=== PATIENT | female | born 1960 | race Caucasian/White ===

== ENCOUNTER 2020-06-29 16:17 | Outpatient (REF) | payer OTHER, SELFPAY ==
--- NOTE | ~2020-06-29 | MM_ITS ---
EXAMINATION: MM SCREENING DIGITAL BREAST TOMOSYNTHESIS, BILATERAL CLINICAL INFORMATION: Screening. Asymptomatic. The lifetime risk of breast cancer based on the Tyrer-Cuzick Model is 18%. COMPARISON: Mammography: 12/17/2018, 10/30/2017, 10/28/2016 TECHNIQUE: Digital breast tomosynthesis is performed in both the craniocaudal and mediolateral oblique views along with computer-aided detection (CAD). Synthesized 2D images are generated from the tomosynthesis. FINDINGS: There are scattered areas of fibroglandular density (ACR BI-RADS breast composition Category b). The breast parenchymal pattern is similar to prior studies. There is no interval mass or architectural abnormality. Again, there are some scattered benign punctate round calcifications. The right axillar is unremarkable. The bilateral skin contours are smooth. There are 2 adjacent nodes left axilla which are increased in size from prior studies. Patient data sheet notes recent COVID vaccine left side, 2nd dose today. The left axillary changes likely represent benign post vaccination reactive change. Patient will be recalled for additional imaging. MM/MM tomosynthesis screening BI IMPRESSION: 1. Left: There are nodes left axillary increased in size from prior studies, likely benign post vaccination reactive change. 2. Right: No mammographic evidence of malignancy. ASSESSMENT: BI-RADS 0: Incomplete - Need Additional Imaging Evaluation RECOMMENDATION: 1. Spot left MLO view and targeted left axillary ultrasound in 4-12 weeks. 2. Radiology department staff will contact the patient for additional imaging. This patient's information was entered into a reminder system with a target due date for their next mammogram.
== END 2020-06-29 16:18 | disposition home or self-care (01) ==
LOC: HO.MAMMO 16:17
PROVIDERS: PCP Internal Medicine; Visit Provider Internal Medicine
DX: Z12.31 Encounter for screening mammogram for malignant neoplasm of breast (principal)
CPT/HCPCS: 77063; 77067

== ENCOUNTER 2020-09-12 13:47 | Outpatient (REF) | payer OTHER, SELFPAY ==
--- NOTE | ~2020-09-12 | MM_ITS ---
EXAMINATION: MM DIAGNOSTIC DIGITAL BREAST TOMOSYNTHESIS, LEFT CLINICAL INFORMATION: Enlarged axillary lymph nodes on prior study. Vaccine Injection was done in the left arm. COMPARISON: Mammography: June 29, 2020 and studies dating back to May 19, 2013 TECHNIQUE: Digital breast tomosynthesis is performed. 2D images are generated from the tomosynthesis. The following views are obtained: Left mediolateral oblique study targeted to the axilla. FINDINGS: There are scattered areas of fibroglandular density (ACR BI-RADS breast composition Category b). Views of the axilla demonstrate the 2 lymph nodes to have decreased in size and have a similar appearance to studies dating back to May 19, 2013. Results are discussed with the patient at time of visit. MM/MM tomosynthesis added views L IMPRESSION: Left axillary lymph nodes have returned to usual appearance. ASSESSMENT: BI-RADS 1: Negative RECOMMENDATION: Routine annual mammography screening. This patient's information was entered into a reminder system with a target due date for their next mammogram.
== END 2020-09-12 13:48 | disposition home or self-care (01) ==
LOC: HO.MAMMO 13:47
PROVIDERS: PCP Internal Medicine; Visit Provider Internal Medicine
DX: N63.32 Unspecified lump in axillary tail of the left breast (principal)
CPT/HCPCS: 77061; 77065

== ENCOUNTER 2021-01-30 13:43 | Outpatient (REF) | payer OTHER, SELFPAY ==
--- NOTE | ~2021-01-30 | XR_ITS ---
EXAMINATION: XR CHEST CLINICAL INFORMATION: Covid infection COMPARISON: None TECHNIQUE: 2 views of the chest were obtained. FINDINGS: The cardiac and mediastinal contours are normal. The lungs are clear. There is no pleural effusion or pneumothorax. There is mild curvature of the thoracic spine to the right and degenerative change. XR/XR chest 2V IMPRESSION: No evidence for acute disease in the chest.
== END 2021-01-30 13:44 | disposition home or self-care (01) ==
LOC: HO.HMGCX 13:43
PROVIDERS: PCP Internal Medicine; Visit Provider Internal Medicine
DX: U07.1 COVID-19 (principal)
CPT/HCPCS: 71046

== ENCOUNTER 2021-11-16 17:00 | Outpatient (REF) | payer OTHER, SELFPAY ==
[2021-11-22 14:56] LABS: HPV mRNA E6/E7 rflx Not Detected (Not Detected)
== END 2021-11-16 17:01 | disposition home or self-care (01) ==
LOC: HO.LNP 17:00
PROVIDERS: Visit Provider Internal Medicine
DX: Z12.4 Encounter for screening for malignant neoplasm of cervix (principal); Z11.51 Encounter for screening for human papillomavirus (HPV)
CPT/HCPCS: 87624; 88142

== ENCOUNTER 2021-11-21 09:22 | Outpatient (REF) | payer OTHER, SELFPAY ==
[2021-11-21 11:13] LABS: MANUAL DIFF FLAG NO
[2021-11-21 11:27] LABS: Basophils Absolute Auto 0.1 X10*3/uL (0.0-0.2); Basophils Percent Auto 1.1 % (0-2); Eosinophils Absolute Auto 0.1 X10*3/uL (0.0-0.4); Eosinophils Percent Auto 1.9 % (0-4); Hematocrit 42.8 % (37.0-47.0); Imm Gran Abs Auto 0.02 X10*3/uL (0.00-0.03); Imm Gran Pct Auto 0.4 % (0.0-0.4); Lymphocytes Absolute Auto 1.9 X10*3/uL (1.2-4.9); Lymphocytes Percent Auto 34.6 % (20-40); Mean Corpuscular HGB Conc 32.7 g/dl (31.0-35.0); Mean Corpuscular Volume 91.8 fL (80.0-98.0); Mean Platelet Volume 10.3 fL (9.4-12.3); Monocytes Absolute Auto 0.5 X10*3/uL (0.1-1.2); Neutrophils Absolute Auto 2.8 x10*3/uL (2.0-8.3); Platelet Count 238 X10*3/uL (160-400); Red Blood Count 4.66 X10*6/uL (4.20-5.50); Red Cell Distribution Width 12.5 % (11.0-16.0); White Blood Count 5.4 X10*3/uL (4.8-10.8)
[2021-11-21 12:04] LABS: TSH reflex Free T4 0.79 uIU/mL (0.32-4.0)
[2021-11-21 12:22] LABS: Alanine Aminotransferase 38 U/L (0-31); Albumin Level 4.5 g/dL (3.5-5.0); Alkaline Phosphatase 67 U/L (39-117); Anion Gap 18 (12-20); Aspartate Amino Transferase 38 U/L (5-31); Bilirubin Total 0.4 mg/dL (0.0-1.0); Blood Urea Nitrogen 15 mg/dL (9-16); Calcium 9.5 mg/dL (8.4-10.2); Carbon Dioxide 20 mmol/L (22-29); Chloride 108 mmol/L (96-108); Cholesterol 220 mg/dL; Estimated Glomerular Filt Rate > 60; Glucose Fasting 106 mg/dL (60-99); HDL Cholesterol 62 mg/dL; LDL Cholesterol Calculated 141 mg/dl; Potassium 5.1 mmol/L (3.3-5.1); Sodium 141 mmol/L (135-145); Total Protein 8.1 g/dL (6.5-8.0); Triglycerides 86 mg/dL
== END 2021-11-21 09:23 | disposition home or self-care (01) ==
LOC: HO.HMGCLDS 09:22
PROVIDERS: PCP Internal Medicine; Visit Provider Internal Medicine
DX: Z00.01 Encounter for general adult medical examination with abnormal findings (principal); M67.90 Unspecified disorder of synovium and tendon, unspecified site; M25.569 Pain in unspecified knee
CPT/HCPCS: 36415; 80053; 80061; 82306; 84443; 85025

== ENCOUNTER 2021-12-03 09:08 | Outpatient (REF) | payer OTHER, SELFPAY ==
--- NOTE | ~2021-12-03 | MM_ITS ---
EXAMINATION: MM SCREENING DIGITAL BREAST TOMOSYNTHESIS, BILATERAL CLINICAL INFORMATION: Screening. Asymptomatic. The lifetime risk of breast cancer based on the Tyrer-Cuzick Model is 13%. COMPARISON: Mammography: 09/12/2020, 06/29/2020, 12/17/2018 TECHNIQUE: Digital breast tomosynthesis is performed in both the craniocaudal and mediolateral oblique views along with computer-aided detection (CAD). Synthesized 2D images are generated from the tomosynthesis. FINDINGS: There are scattered areas of fibroglandular density (ACR BI-RADS breast composition Category b). There are no significant masses, abnormal calcifications, or other abnormalities. There is fine fibronodular parenchymal pattern is similar to prior studies. No developing density or architectural abnormality. The axilla are and skin contours are unremarkable. MM/MM tomosynthesis screening BI IMPRESSION: No mammographic evidence of malignancy. ASSESSMENT: BI-RADS 1: Negative RECOMMENDATION: Routine annual mammography screening. This patient's information was entered into a reminder system with a target due date for their next mammogram.
== END 2021-12-03 09:09 | disposition home or self-care (01) ==
LOC: HO.MAMMO 09:08
PROVIDERS: Visit Provider Internal Medicine
DX: Z12.31 Encounter for screening mammogram for malignant neoplasm of breast (principal)
CPT/HCPCS: 77063; 77067

== ENCOUNTER 2022-10-23 09:23 | Outpatient (AMB) | payer OTHER, SELFPAY ==
--- NOTE | 2022-10-23 09:41 | A.OFFVIS_ITS ---
Intake Vital Signs 10/23/22 09:42 Height 5 ft 6 in Weight 185 lb BMI 29.9 BP 136/65 Blood Pressure Location Rt brachial Position Sitting Pulse 77 Intake Visit Reasons: Colonoscopy screening Intake Note: Patient new consult for 2nd pre colonoscopy screening. Patient denies any GI issues. [employer] Required: No Accompanied by: Self / Same As Patient Allergies Sulfa (Sulfonamide Antibiotics) Allergy (Unknown, Verified 10/23/22 09:40) RASH Medication List - Last Reconciled 10/23/22 by Fany Irizarry PA-C bisacodyl (Dulcolax (bisacodyl)) 20 mg (4 x 5 mg) PO ONCE 1 day polyethylene glycol 3350 (Miralax) 238 grams PO ONCE PRN 1 day HPI HPI Comments History of Present Illness Details A 62 y/o female referred for screening colonoscopy- No GI complaints- Trying to get more exercise, and lose some weight. She has no bowel issues. 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 She has not currently undergoing any psychotherapy She does have a good support group between her family and friends She has no nausea, vomiting, hematemesis, hematochezia fever chills PFSH Medical History (Updated 10/23/22 @ 11:44 by Fany Irizarry PA-C) Arthralgia of knee Dupuytren's contracture of left hand History of COVID-19 Immunization declined Obesity (BMI 30.0-34.9) Vertigo Surgical History Hx of colonoscopy Family History Father Alcoholism Colon polyp Depression Mother Depression History of breast cancer Diabetes mellitus Social History Housing: House Patient Tobacco Use Status: Former Tobacco user Years Smoked: 3 months e-Cigarette/Vaping Use: Currently Using service: No Current occupational status: retired Cognitive needs: No Hearing needs: No Vision needs: Yes Review of Systems Const All systems reviewed & are unremarkable except as noted in HPI and below Denies chills and Denies fever(s) Card Denies chest pain and Denies dyspnea Resp Denies dyspnea GI Denies abdominal pain, Denies hematochezia, Denies change in bowel habits, Denies heartburn, Denies nausea and Denies vomiting Psych Reports anxiety, Reports depression, Denies homicidal ideation and Denies suicidal ideation Physical Exam Vital Signs: Last Vital Signs Pulse 77 10/23/22 09:42 BP 136/65 10/23/22 09:42 BMI result Body Mass Index 29.9 Const General: cooperative, healthy appearing, comfortable and anxious Orientation/consciousness: patient oriented x3 Limitations: no limitations Eyes Other: Tearful Sclerae: sclerae normal Resp Effort & Inspection: normal respiratory effort and able to speak in complete sentences Auscultation: clear to auscultation bilaterally Cardio Rate: regular rate Rhythm: regular rhythm Heart sounds: S1 normal heart sound present and S2 normal heart sound present GI Palpation (GI): Soft to palpation and nontender Auscultation: normal bowel sounds Skin General skin exam: no rashes or lesions noted Neuro General: patient oriented x3 Extrem General: Yes full ROM Psych Appearance: grossly normal and well kempt Speech and movement: Clear speech present Affect: Sad affect present Attitude: cooperative Thought process: Normal thought process present Thought content: Normal thought content present Assessment & Plan Assessment & Plan (1) Encounter for screening colonoscopy: Code(s): Z12.11 - Encounter for screening for malignant neoplasm of colon Plan: Screening colonoscopy MiraLax Gatorade prep (2) Depression: Comment: Pleasant, 62-year-old female Had in-depth conversation in regard to depression/anxiety over difficulty dealing with long-term relationship-she is very tearful upset-difficult controlling her emotions She denies any suicidal or homicidal ideation. She does seem to have a good friend/family support Did discuss psychotherapy- she will consider this. She makes a clear she does not want to be taking any medications for depression. Reassurance offered, receptive Code(s): F32.A - Depression, unspecified Plan: Encouraged her to Call with any questions or concerns Plan Colonoscopy- MG prep Consider psychotherapy Orders: Orders Colonoscopy - GI Use Only Today Z12.11 - Encounter for screening for malignant neoplasm of colon Medications: New bisacodyl (Dulcolax (bisacodyl)) Take 4 tablets by mouth at 12:00pm the day before your procedure. 20 mg (4 x 5 mg) PO ONCE 1 day 4 tabs 0RF colonoscopy prep Z12.11 - Encounter for screening for malignant neoplasm of colon polyethylene glycol 3350 (Miralax) Take as directed by mouth the day before your procedure. 238 grams PO ONCE 1 day PRN 238 grams 0RF laxative effect Patient Instructions: Very pleasant tearful 62-year-old female referred for screening colonoscopy Discussed procedure, rare risks, prep-literature given Consider psychotherapy She has no GI complaints We encouraged to call questions or concerns There are no major barriers to understanding identify Appreciate the opportunity assist in the care the patient Coding Level of Care Code New Pt Level 4 (79296) Diagnoses Encounter for screening colonoscopy Z12.11 Depression F32.A Time Spent (min) 55
[2022-10-23 09:42] VITALS: BP 136/65; PULSE 77; BMI 29.9
== END 2022-10-23 10:45 | disposition home or self-care (01) ==
PROVIDERS: PCP Internal Medicine; Visit Provider Physician Assistant
DX: Z01.818 Encounter for other preprocedural examination (principal); Z12.11 Encounter for screening for malignant neoplasm of colon; F32.A Depression, unspecified
CPT/HCPCS: 99204

== ENCOUNTER → 2022-10-23 09:23 | Outpatient (BNVA) | payer OTHER, SELFPAY | PROVIDERS: PCP Internal Medicine; Visit Provider Physician Assistant ==

== ENCOUNTER 2022-11-22 07:57 | Outpatient (AMB) | payer OTHER, SELFPAY ==
--- NOTE | 2022-11-22 08:06 | A.OFFPC_ITS ---
Vital Signs 11/22/22 08:08 11/22/22 08:15 Height 5 ft 6 in 5 ft 6 in Weight 178 lb BMI 28.7 BP 138/80 Blood Pressure Location Lt brachial Position Sitting Pulse 72 Pulse Source Pulse Oximeter Pulse Oximetry (%) 98 Oxygen Delivery Method Room Air Intake Visit Reasons: Annual PE Intake Note: pt is here for annual exam Accompanied by: Self / Same As Patient Allergies Sulfa (Sulfonamide Antibiotics) Allergy (Unknown, Verified 11/22/22 08:13) RASH Medication List - Last Reconciled 11/22/22 by Marcy Sutton MD No Known Home Meds Tobacco use date assessed: 11/22/22 Dental Screening Dental Screen Date: 11/22/22 Did you have a dental visit in the last 12 months?: Yes Did you have a dental problem in the last 6 months where you did not have access to dental care?: No Was dental information given to patient?: Patient has dentist HPI Annual PE HPI Details 62-year-old lady here today for physical exam. Fasting labs last year showed fasting glucose in prediabetic range and elevated cholesterol levels , has been trying to adhere to healthy eating habits. Has already been seen by GI clinic and will be scheduled for screening colonoscopy. She has an appointment already scheduled for a screening mammogram later this month. Had cervical cancer screening done last year, with Pap smear showing normal findings. Has had 2 COVID vaccination, does not want to get booster, shingles vaccine or the flu vaccine, up-to-date with her Tdap. Has episodes of low mood, just getting over a bad break-up with her boyfriend 4 months ago. Has good support with family and friends, and has been exercising, volunteering, staying follow-up in the community which has been helping. Does not want to start any medications for depression nor does she need any therapy, per patient. [facility] Medical History Vitamin D deficiency Hyperlipidemia Impaired fasting glucose Obesity (BMI 30.0-34.9) Dupuytren's contracture of left hand Immunization declined Arthralgia of knee History of COVID-19 Vertigo Surgical History (Updated 11/22/22 @ 08:37 by Marcy Sutton MD) Hx laparoscopic cholecystectomy Hx of colonoscopy Family History Father Alcoholism Colon polyp Depression Mother Depression History of breast cancer Diabetes mellitus Social History (Updated 11/22/22 @ 08:15 by Marcy Sutton MD) Housing: House Patient Tobacco Use Status: Former Tobacco user Years Smoked: 3 months e-Cigarette/Vaping Use: Currently Using service: No Current occupational status: retired Cognitive needs: No Hearing needs: No Vision needs: Yes Female Reproductive History Menstrual Menopause type: natural Date of last pap smear: 11/20/21 Questionnaire PHQ-9 Over the last 2 weeks, how often have you been bothered by any of the following problems? 1. Little interest or pleasure in doing things: several days 2. Feeling down, depressed, or hopeless: several days 3. Trouble falling or staying asleep, or sleeping too much: several days 4. Feeling tired or having little energy: several days 5. Poor appetite or overeating: not at all 6. Feeling bad about yourself - or that you are a failure or have let yourself or your family down: not at all 7. Trouble concentrating on things, such as reading the newspaper or watching television: not at all 8. Moving or speaking so slowly that other people could have noticed. Or the opposite - being so fidgety or restless that you have been moving around a lot more than usual: not at all 9. Thoughts that you would be better off or of hurting yourself in some way: not at all Total score: 4 Depression Screening Interpretation: Positive (Just had a bad break-up with boyfriend 04/2022) Depression Screening Follow-up: Existing condition and Declines treatment Source: Developed by Drs. Cale Hernandez, Ronda Chadwick, Vishnu Leonard and colleagues, with an educational fritz from [employer]. Thrive Questionnaire Date Thrive assessed: 11/22/22 I am a: Patient What is your living situation today?: I have a steady place to live Within the past 12 months, did the food you bought not last and you didn't have the money to get more?: Never true Within the past 12 months, did you worry whether your food would run out before you got money to buy more?: Never true Do you have trouble paying for medicines?: No Do you have trouble getting transportation to medical appointments?: No Do you have trouble paying your heating and electricity bill?: No Do you have trouble taking care of your child, family member or friend?: No Do you have trouble with day-to-day activities such as bathing, preparing meals, shopping, managing finances, etc.?: No Are you currently unemployed and looking for a job?: No Are you interested in more education?: No Please select the resources that you would like help with: None AUDIT C Alcohol Use Questionnaire (AUDIT-C) 1. How often do you have a drink containing alcohol?: Monthly or less Total Score: 1 FEDERICO-7 AMB Questionnaire FEDERICO-7 Date FEDERICO - 7 assessed: 11/22/22 Feeling nervous, anxious, or on edge: 1 = Several days Not being able to stop or control worryin = Several days Worrying too much about different things: 1 = Several days Trouble relaxin = Not at all Being so restless that it is hard to sit still: 0 = Not at all Becoming easily annoyed or irritable: 0 = Not at all Feeling afraid as if something awful might happen: 0 = Not at all Total FEDERICO-7 score (0-4 normal; 5-9 mild; 10-14 moderate; 15-21 severe): 3 Source: Developed by Drs. Cale Hernandez, Ronda Chadwick, Vishnu Leonard and colleagues, with an educational fritz from [employer]. FEDERICO-7 Assessment Billing FEDERICO-7 Assessment Tool: FEDERICO-7 Assessment 32916 Review of Systems Const All systems reviewed & are unremarkable except as noted in HPI and below Denies chills and Denies fever(s) Eyes Details: Sees [facility] Denies change in vision and Reports requires corrective lenses ENT Reports no additional complaints Card Denies chest pain and Denies dyspnea Resp Denies dyspnea GI Denies abdominal pain, Denies hematochezia, Denies change in bowel habits, Denies heartburn, Denies nausea and Denies vomiting Reports no additional complaints Musc Reports no additional complaints Skin/Breast Details: Presence of keratosis, sees [facility] yearly Denies breast swelling, Denies breast skin changes, Denies breast pain, Denies breast mass, Denies change in breast shape and Denies rash Neuro Denies behavioral changes Psych Reports as per HPI, Denies behavioral changes, Denies change in appetite, Denies difficulty concentrating, Denies panic attacks, Denies homicidal ideation and Denies suicidal ideation Endo Reports no additional complaints Ayden/Lymph Reports no additional complaints Aller/Immun Reports no additional complaints Physical exam (Primary Care) Vital Signs: Last Vital Signs Pulse 72 11/22/22 08:15 BP 138/80 11/22/22 08:15 Pulse Ox 98 11/22/22 08:15 Oxygen Delivery Method Room Air 11/22/22 08:15 BMI result Body Mass Index 28.7 BMI Assessment/Plan discussion: High BMI High, discussed plan: lifestyle, weight reduction, dietary and physical activity Tobacco/Smoking Status: Tobacco use Status Tobacco use date assessed 11/22/22 11/22/22 08:18 Patient Tobacco Use Status Former Tobacco user 11/22/22 08:15 e-Cigarette/Vaping Use Currently Using 11/22/22 08:15 PHQ-9: PHQ-9 Score PHQ-9: Total score 4 11/22/22 08:52 Depression Screening Interpretation: Positive (Just had a bad break-up with boyfriend 04/2022) Depression Screening Follow-up: Existing condition and Declines treatment Thrive Assessment: Date of Thrive Assessment Date Thrive assessed 11/22/22 11/22/22 08:27 Const General: cooperative, comfortable and no acute distress Orientation/consciousness: patient oriented x3 Limitations: no limitations HENMT Ears: hearing grossly normal bilaterally, external ears normal, TM's normal bilaterally and EAC's normal General nose exam: Normal external nose present and No nasal discharge present Mouth: Normal oral and palatal mucosa present, oropharynx normal and moist mucous membranes Eyes General: appearance normal, both eyes and all related structures Conjunctivae: conjunctivae normal Pupils: Equal, round and reactive pupils present EOM: EOMs intact bilaterally Neck Neck: Yes full ROM, Yes no lymphadenopathy and Yes supple Chest Chest palpation & inspection: normal inspection of the chest Breast/axilla palpation: normal palpation of the breasts Resp Effort & Inspection: normal respiratory effort and able to speak in complete sentences Auscultation: clear to auscultation bilaterally Cardio Rate: regular rate Rhythm: regular rhythm Heart sounds: S1 normal heart sound present and S2 normal heart sound present GI Inspection: Yes normal to inspection Auscultation: normal bowel sounds General: Yes no CVA tenderness Back/Spine/Pelvis Back: no CVA tenderness Skin Other: Scattered hyper pigmented slightly raised lesions on upper back, abdomen and arms Neuro General: patient oriented x3, gait normal, tone normal, moves all extremities, Normal light touch and pain sensation and no focal motor deficits Cranial nerves: Yes Equal, round and reactive pupils present Cognition (Neuro): normal cognition Gait exam (Neuro): Normal gait present Motor exam (neuro): 5/5 motor strength present throughout Extrem General: Yes full ROM, Yes no joint enlargement, Yes no clubbing, cyanosis or edema and Yes normal gait Psych Appearance: grossly normal and well kempt Mental Status: mental status grossly normal Speech and movement: Normal speech and movement present Affect: normal affect Attitude: cooperative Thought process: Normal thought process present Assessment and Plan Assessment & Plan (1) Obesity (BMI 30.0-34.9): Code(s): E66.9 - Obesity, unspecified Plan: Continue with regular exercise. Recommended focusing on improving your health instead of dieting. : Eat Mediterranean diet, limit foods high in fat, sugar, and calories, eat slowly, pay attention to portion sizes, plan your meals ahead of time, start regular physical activity 150 minutes of moderate intensity exe rcise or 90 minutes/week of vigorous exercise and increase water intake. (2) Hyperlipidemia: Code(s): E78.5 - Hyperlipidemia, unspecified Plan: Fasting lipid panel ordered (3) Impaired fasting glucose: Code(s): R73.01 - Impaired fasting glucose Plan: Your fasting blood sugars was elevated above 100 mg/dL on last check. Impaired glucose metabolism O2 at risk for developing diabetes mellitus type 2, as well as heart attack and stroke later on. Lifestyle changes at just weight loss, healthy eating habits, and regular exercise are important, and can prevent the progression to diabetes (4) Immunization declined: Code(s): Z28.21 - Immunization not carried out because of patient refusal Plan: Declines getting COVID vaccination, flu or shingles vaccine (5) Annual visit for general adult medical examination with abnormal findings: Code(s): Z00.01 - Encounter for general adult medical examination with abnormal findings Plan: Will check appropriate labs. Continue with regular dental visit every 6 months and regular eye exams, at least every 2 years, goes to [facility].. Take adequate calcium in diet and vitamin-D 3 at 2000 IU per cap once a day, in addition to weight-bearing exercises to help maintain good muscle tone and weight control. Instructed to do self-breast exam, and continue to get yearly mammogram, has appointment already scheduled later this month.. Already has been seen by GI clinic and is awaiting schedule for her screening colonoscopy. (6) Vitamin D deficiency: Code(s): E55.9 - Vitamin D deficiency, unspecified Plan: Check vitamin-D level (7) Family history of thyroid disorder: Code(s): Z83.49 - Family history of other endocrine, nutritional and metabolic diseases Plan: Check TSH with free T4 Orders: Orders Aspartate Amino Transferase Today E55.9 - Vitamin D deficiency, unspecified, E66.9 - Obesity, unspecified, E78.5 - Hyperlipidemia, unspecified, R73.01 - Impaired fasting glucose, Z00.01 - Encounter for general adult medical examination with abnormal findings, Z78.0 - Asymptomatic menopausal state TSH reflex Free T4 Today Z83.49 - Family history of other endocrine, nutritional and metabolic diseases Lipid Panel Today E55.9 - Vitamin D deficiency, unspecified, E66.9 - Obesity, unspecified, E78.5 - Hyperlipidemia, unspecified, R73.01 - Impaired fasting glucose, Z00.01 - Encounter for general adult medical examination with abnormal findings, Z78.0 - Asymptomatic menopausal state Hemoglobin A1c Today E55.9 - Vitamin D deficiency, unspecified, E66.9 - Obesity, unspecified, E78.5 - Hyperlipidemia, unspecified, R73.01 - Impaired fasting glucose, Z00.01 - Encounter for general adult medical examination with abnormal findings, Z78.0 - Asymptomatic menopausal state Vitamin D 25-OH Total Today E55.9 - Vitamin D deficiency, unspecified, E66.9 - Obesity, unspecified, E78.5 - Hyperlipidemia, unspecified, R73.01 - Impaired fasting glucose, Z00.01 - Encounter for general adult medical examination with abnormal findings, Z78.0 - Asymptomatic menopausal state Glucose Fasting Today E55.9 - Vitamin D deficiency, unspecified, E66.9 - Obe sity, unspecified, E78.5 - Hyperlipidemia, unspecified, R73.01 - Impaired fasting glucose, Z00.01 - Encounter for general adult medical examination with abnormal findings, Z78.0 - Asymptomatic menopausal state Alanine Aminotransferase Today E55.9 - Vitamin D deficiency, unspecified, E66.9 - Obesity, unspecified, E78.5 - Hyperlipidemia, unspecified, R73.01 - Impaired fasting glucose, Z00.01 - Encounter for general adult medical examination with abnormal findings, Z78.0 - Asymptomatic menopausal state Coding Level of Care Code Est Pt Prev Care 40-64y(11289) Diagnoses Obesity (BMI 30.0-34.9) E66.9 Hyperlipidemia E78.5 Impaired fasting glucose R73.01 Immunization declined Z28.21 Annual visit for general adult medical examination with abnormal findings Z00.01 Vitamin D deficiency E55.9 Family history of thyroid disorder Z83.49 Additional Codes FEDERICO-7 Assessment Billing - FEDERICO-7 Assessment Tool: FEDERICO-7 Assessment 80000 ([id number])
[2022-11-22 08:15] VITALS: BP 138/80; PULSE 72; O2SAT 98; BMI 28.7
== END 2022-11-22 08:46 | disposition home or self-care (01) ==
PROVIDERS: Visit Provider Internal Medicine
DX: Z00.01 Encounter for general adult medical examination with abnormal findings (principal); E55.9 Vitamin D deficiency, unspecified; Z83.49 Family history of other endocrine, nutritional and metabolic diseases; E66.9 Obesity, unspecified; E78.5 Hyperlipidemia, unspecified; R73.01 Impaired fasting glucose; Z28.21 Immunization not carried out because of patient refusal; Z68.28 Body mass index [BMI] 28.0-28.9, adult
CPT/HCPCS: 99396

== ENCOUNTER 2022-11-22 08:47 | Outpatient (REF) | payer OTHER, SELFPAY ==
[2022-11-22 11:47] LABS: Estimated Average Glucose 105 mg/dL; Hemoglobin A1c % 5.3 % (<6.0)
[2022-11-22 12:09] LABS: Alanine Aminotransferase 32 U/L (0-31); Aspartate Amino Transferase 26 U/L (5-31); Cholesterol 215 mg/dL (<200); Glucose Fasting 116 mg/dL (60-99); HDL Cholesterol 64 mg/dL (>40); LDL Cholesterol Calculated 134 mg/dL (<100); TSH reflex Free T4 2.03 uIU/mL (0.32-4.0); Triglycerides 87 mg/dL (<150); Vitamin D 25-OH Total 46.7 ng/mL (>30)
== END 2022-11-22 08:48 | disposition home or self-care (01) ==
LOC: HO.HMGCLDS 08:47
PROVIDERS: PCP Internal Medicine; Visit Provider Internal Medicine
DX: Z00.01 Encounter for general adult medical examination with abnormal findings (principal); E66.9 Obesity, unspecified; R73.01 Impaired fasting glucose; E78.5 Hyperlipidemia, unspecified; E55.9 Vitamin D deficiency, unspecified; Z78.0 Asymptomatic menopausal state; Z83.49 Family history of other endocrine, nutritional and metabolic diseases
CPT/HCPCS: 36415; 80061; 82306; 82947; 83036; 84443; 84450; 84460

== ENCOUNTER 2022-12-09 08:51 | Outpatient (REF) | payer OTHER, SELFPAY ==
--- NOTE | ~2022-12-09 | MM_ITS ---
EXAMINATION: MM SCREENING DIGITAL BREAST TOMOSYNTHESIS, BILATERAL CLINICAL INFORMATION: Screening. Asymptomatic. COMPARISON: Mammography: 12/02/2021, 09/12/2020, 06/29/2020, 12/17/2018 TECHNIQUE: Digital breast tomosynthesis is performed in both the craniocaudal and mediolateral oblique views along with computer-aided detection (CAD). Synthesized 2D images are generated from the tomosynthesis. FINDINGS: There are scattered areas of fibroglandular density (ACR BI-RADS breast composition Category b). Again, there are some scattered benign punctate round calcifications, without aggressive change. There are no suspicious masses, suspicious grouped calcifications, or areas of architectural distortion in either breast. The parenchymal pattern is stable from prior exams. There is a dermal lesion in the anterolateral right breast. No axillary changes. MM/MM tomosynthesis screening BI IMPRESSION: No mammographic evidence of malignancy. Stable benign findings. ASSESSMENT: BI-RADS BI-RADS 1 - Negative RECOMMENDATION: Routine annual mammography screening. 1 year F/U This examination should not preclude the clinical evaluation of a suspicious palpable abnormality. This patient's information was entered into a reminder system with a target due date for their next mammogram.
== END 2022-12-09 08:52 | disposition home or self-care (01) ==
LOC: HO.MAMMO 08:51
PROVIDERS: PCP Internal Medicine; Visit Provider Internal Medicine
DX: Z12.31 Encounter for screening mammogram for malignant neoplasm of breast (principal)
CPT/HCPCS: 77063; 77067

== ENCOUNTER → 2022-12-09 09:00 | Outpatient (BNV) | payer OTHER, SELFPAY | PROVIDERS: PCP Internal Medicine; Visit Provider Radiology Diagnostic Radiology | DX: Z12.31 Encounter for screening mammogram for malignant neoplasm of breast (principal) | CPT/HCPCS: 77063; 77067 ==

== ENCOUNTER 2023-01-21 09:09 | Outpatient (AMB) | payer OTHER, SELFPAY ==
[2023-01-21 09:59] VITALS: BP 120/80; PULSE 100; TEMP 36.3; O2SAT 97; BMI 28.6
--- NOTE | 2023-01-21 09:59 | MHC.OFFWIV ---
Intake Vital Signs 01/21/23 09:59 Height 5 ft 6 in Weight 177 lb 6 oz BMI 28.6 BP 120/80 Blood Pressure Location Rt brachial Position Sitting Pulse 100 Pulse Source Pulse Oximeter Temp 97.3 F Temp Source Temporal Artery Scan Pulse Oximetry (%) 97 Oxygen Delivery Method Room Air Intake Visit Reasons: EP Wheezing/Sinus pressure Intake Note: pt is here for c/o wheezing and sinus pressure, chest congestion 2 weeks Patient Tobacco Use Status: Former Tobacco user Allergies Sulfa (Sulfonamide Antibiotics) Allergy (Unknown, Verified 01/21/23 10:35) RASH Medication List - Last Reconciled 01/21/23 by Zaki Loya MD No Known Home Meds Do you need a note to return to daycare/school/sports/work: Yes HPI EP Wheezing/Sinus pressure HPI Details Patient presents for a sick visit. Reporting symptoms of sinus congestion, sore throat and difficulty swallowing. Low-grade fever. No family member is sick. No recent travel. Patient reports symptoms of malaise and fatigue. [facility] Medical History Vitamin D deficiency Hyperlipidemia Impaired fasting glucose Obesity (BMI 30.0-34.9) Dupuytren's contracture of left hand Immunization declined Arthralgia of knee History of COVID-19 Vertigo Surgical History (Updated 11/22/22 @ 08:37 by Marcy Sutton MD) Hx laparoscopic cholecystectomy Hx of colonoscopy Family History Father Alcoholism Colon polyp Depression Mother Depression History of breast cancer Diabetes mellitus Social History (Updated 11/22/22 @ 08:15 by Marcy Sutton MD) Housing: House Patient Tobacco Use Status: Former Tobacco user Years Smoked: 3 months e-Cigarette/Vaping Use: Currently Using service: No Current occupational status: retired Cognitive needs: No Hearing needs: No Vision needs: Yes Physical Exam Vital Signs: Last Vital Signs Temp 97.3 F 01/21/23 09:59 Pulse 100 01/21/23 09:59 BP 120/80 01/21/23 09:59 Pulse Ox 97 01/21/23 09:59 Oxygen Delivery Method Room Air 01/21/23 09:59 BMI result Body Mass Index 28.6 Const General: cooperative and healthy appearing Nutritional Appearance: well nourished Orientation/consciousness: patient oriented x3 Limitations: no limitations HEENT Head: Yes normal to inspection Eyes General: appearance normal, both eyes and all related structures Neck Neck: Yes normal visual inspection Chest Chest palpation & inspection: normal palpation of entire chest wall Resp Effort & Inspection: normal respiratory effort Neuro General: patient oriented x3 Assessment & Plan Assessment & Plan (1) Upper respiratory tract infection: Code(s): J06.9 - Acute upper respiratory infection, unspecified Plan Antibiotics ordered. Increase fluid intake. Tylenol for aches and pains. If symptoms worsen, follow-up here for a recheck. Coding Level of Care Code Est Pt Level 3 (75388) Diagnoses Upper respiratory tract infection J06.9
== END 2023-01-21 10:54 | disposition home or self-care (01) ==
PROVIDERS: PCP Internal Medicine; Visit Provider Internal Medicine
DX: J06.9 Acute upper respiratory infection, unspecified (principal)
CPT/HCPCS: 99213

== ENCOUNTER 2023-05-14 06:31 | Day surgery (SDC) | payer OTHER, SELFPAY ==
--- NOTE | 2023-05-14 06:16 | MHC.SHP ---
Pre-Procedural Eval Section A - 24 Hr Update-Section A only Date of Service: 05/14/23 Section B - Complete if H&P > 30 days Chief Complaint: screening Relevant Family History (Specify if Yes): No Relevant Social History: None Present Medications: see Short Stay Collaborative assessment Medical History: Significant History (Vitamin D deficiency Hyperlipidemia Impaired fasting glucose Obesity (BMI 30.0-34.9) Dupuytren's contracture of left hand Immunization declined Arthralgia of knee History of COVID-19 Vertigo) History of Previous Operations: Relevant previous surgery/procedure and date(s) (Hx laparoscopic cholecystectomy Hx of colonoscopy) Allergies: Allergies Allergy/AdvReac Type Severity Reaction Status Date / Time Sulfa (Sulfonamide Allergy Unknown RASH Verified 01/21/23 10:35 Antibiotics) Review of Systems Sugical H&P ROS: Negative: Constitution, Cardiovascular, Respiratory, Neurological, Psychiatric, Hem-Onc, Allergic/Immunologic, Gastrointestinal, Genitourinary, Musculoskeletal, Integumentary, Endocrine and Eyes/Ears/Nose/Throat Exam Surgical H&P Exam: Normal: HEENT, Normal: Heart, Normal: Lungs, Normal: Extremities, Normal: Abdomen, Normal: Skin and Normal: Neurological Plan Diagnosis/Plan: Unchanged I have reviewed the history and physical and performed a pertinent physical examination on my patient. No changes have occurred unless specified. Time Spent With Patient Time: Total time managing care of this patient today ____ minutes.
[2023-05-14 06:40] VITALS: BMI 29.9
[2023-05-14 06:53] VITALS: BP 144/76; PULSE 80; RESP 18; TEMP 36.6; O2SAT 99
[2023-05-14] MEDS: Lactated Ringers 1,000 ML 50 ML IVCONT (07:01)
--- NOTE | 2023-05-14 07:52 | HO.ANESPROP2 ---
HPI - Anesthesia Eval Consult details Narrative: colonoscopy PMFSH Active Problems Active Problems: All Active Problems (Updated 11/22/22 @ 08:10 by Marcy Sutton MD) Vitamin D deficiency (Acute) Hyperlipidemia (Acute) Impaired fasting glucose (Acute) Depression (Acute) Obesity (BMI 30.0-34.9) (Acute) Immunization declined (Acute) Arthralgia of knee (Acute) Past Medical History Medical History Vitamin D deficiency Hyperlipidemia Impaired fasting glucose Obesity (BMI 30.0-34.9) Dupuytren's contracture of left hand Immunization declined Arthralgia of knee History of COVID-19 Vertigo Family History Family History Father Alcoholism Colon polyp Depression Mother Depression History of breast cancer Diabetes mellitus Family history of problems with anesthesia: No Surgical History Surgical History Hx laparoscopic cholecystectomy Hx of colonoscopy History of Problems with Anesthesia: No Social History Social History Housing: House Patient Tobacco Use Status: Former Tobacco user Years Smoked: 3 months e-Cigarette/Vaping Use: Currently Using Substance Use Frequency: Daily Are you DNR?: No Advance Directives: No Advance Directives Information Provided: Yes Nutrition Risks: No Nutritional Risk service: No Current occupational status: retired Cognitive needs: No Hearing needs: No Vision needs: Yes Meds Allergies Allergy/AdvReac Type Severity Reaction Status Date / Time Sulfa (Sulfonamide Allergy Unknown RASH Verified 05/14/23 07:01 Antibiotics) Active Medications: Current Medications Lactated Ringer's (Lr) 1,000 mls @ 50 mls/hr IVCONT .Q20H NEELA Last Admin: 05/14/23 07:01 Dose: 50 mls/hr Home Medications Medication Instructions Recorded Confirmed Last Taken Type No Known Home Meds 05/14/23 05/14/23 Unknown History Exam Height,Weight and Vital Signs: Height 5 ft 6 in Weight 83.915 kg Last Vital Signs Temp 97.9 F 05/14/23 06:53 Pulse 80 05/14/23 06:53 Resp 18 05/14/23 06:53 BP 144/76 H 05/14/23 06:53 Pulse Ox 99 05/14/23 06:53 O2 Del Method Room Air 05/14/23 06:53 Airway Mallampati Class: II TM Dist: >3cm Neck ROM: Full Heart: rrr Lungs: cta Assessment and Plan Assessment Anesthesia Assessment: Anesthesia Plan Discussed and Chart Reviewed Final Anesthetic Review Family History of Problems with Anesthesia: No History of Problems with Anesthesia: No NPO: Yes ASA Class: I Final Preanesthetic Review: No Changes in Pt Med Stat, Meds/Allgs Chart Reviewed, Consent Obtained/Reviewed and Anes Risks/Benef Reviewed Patient Risk: Low Procedure Risk: Low Anesthetic Plan Anesthetic Plan: MAC: Disposition: Standard PACU
--- NOTE | 2023-05-14 08:32 | P.OP_ITS ---
Operative Note Operative Note Date of Service: 05/14/23 Narrative: Operative Information Procedure Description: Colonoscopy Indication: screening Anesthesia: MAC COLONOSCOPY Instrument: Olympus variable stiffness pediatric scope 190L Colonoscopy Monitoring: Vital signs and clinical assessment, continuous EKG monitoring, Pulse oximetry, Carbon Dioxide monitoring and blood pressure monitoring were done throughout the procedure. Colon withdrawal time was 8 minutes. Procedure: The patient was placed in the left lateral decubitis position and pre-procedure medications were administered. After a digital rectal examination of the ano-rectum, the video colonoscope was inserted into the rectum and advanced through the colon to the cecum/TI. The colonoscope was slowly withdrawn in a retrograde panoramic fashion and the colon mucosa was carefully examined including a retroflexed view of the rectum. Findings and interventions are described below. Procedure Difficulty: easy Findings: Terminal Ileum-normal Cecum:normal Right sided retroflexion- normal Ascending Colon: normal Transverse Colon -normal Descending Colon: diverticulosis, moderate Sigmoid Colon: sever diverticulosis with mucosal narrowing and angulation Rectum: Retroflexion with small internal hemorrhoids, grade I Anorectum - normal Colon preparation: [place] Bowel Preparation Scale Right colon; 2 Transverse colon: 3 Left colon; 2 (0 = Unprepared colon segment with mucosa not seen due to solid stool that cannot be cleared. 1 = Portion of mucosa of the colon segment seen, but other areas of the colon segment not well seen due to staining, residual stool and/or opaque liquid. 2 = Minor amount of residual staining, small fragments of stool and/or opaque liquid, but mucosa of colon segment seen well. 3 = Entire mucosa of colon segment seen well with no residual staining, small fragments of stool or opaque liquid) Impression and Post Procedure Diagnosis: internal hemorrhoids diverticular disease Plan: High fiber diet leaflet Avoid straining at stool, epsom salts and sitz bath, anusol supps or cream Repeat Colonoscopy in 10 years or earlier if clinically indicated Above findings were reviewed with the patient and relevant handouts were provided if indicated.
[2023-05-14 08:36] VITALS: BP 104/55; PULSE 73; RESP 16; TEMP 36.1; O2SAT 98
[2023-05-14 08:50] VITALS: BP 136/67; PULSE 61; RESP 16; O2SAT 98
[2023-05-14 09:05] VITALS: BP 135/61; PULSE 61; RESP 16; O2SAT 98
[2023-05-14 09:20] VITALS: BP 135/61; PULSE 73; RESP 16; TEMP 36.3; O2SAT 100
== END 2023-05-14 09:45 | disposition home or self-care (01) ==
PROVIDERS: PCP Internal Medicine; Visit Provider Internal Medicine Gastroenterology
PROC: 0DJD8ZZ Inspection of Lower Intestinal Tract, Via Natural or Artificial Opening Endoscopic (ICD-10-PCS; CPT 45378; principal; 2023-05-14 08:30)
DX: Z12.11 Encounter for screening for malignant neoplasm of colon (principal); K57.30 Diverticulosis of large intestine without perforation or abscess without bleeding; K64.0 First degree hemorrhoids; E55.9 Vitamin D deficiency, unspecified; E78.5 Hyperlipidemia, unspecified; R73.01 Impaired fasting glucose; R42 Dizziness and giddiness; F32.A Depression, unspecified; E66.9 Obesity, unspecified; Z68.29 Body mass index [BMI] 29.0-29.9, adult; Z88.2 Allergy status to sulfonamides; Z90.49 Acquired absence of other specified parts of digestive tract; Z86.16 Personal history of COVID-19; Z87.891 Personal history of nicotine dependence
CPT/HCPCS: 45378; J2704

== ENCOUNTER → 2023-05-14 06:31 | Outpatient (BNV) | payer OTHER, SELFPAY | PROVIDERS: PCP Internal Medicine; Visit Provider Internal Medicine Gastroenterology | DX: Z12.11 Encounter for screening for malignant neoplasm of colon (principal); K57.90 Diverticulosis of intestine, part unspecified, without perforation or abscess without bleeding; K64.8 Other hemorrhoids | CPT/HCPCS: 45378 ==

== ENCOUNTER 2023-05-26 13:43 | Outpatient (REF) | payer OTHER, SELFPAY ==
[2023-05-26 16:42] LABS: Alanine Aminotransferase 25 U/L (0-31); Albumin Level 4.5 g/dL (3.5-5.0); Alkaline Phosphatase 94 U/L (39-117); Aspartate Amino Transferase 19 U/L (5-31); Bilirubin Direct 0.1 mg/dL (0.0-0.5); Bilirubin Total 0.3 mg/dL (0.0-1.0); Total Protein 7.6 g/dL (6.5-8.0)
== END 2023-05-26 13:44 | disposition home or self-care (01) ==
LOC: HO.HMGCLDS 13:43
PROVIDERS: PCP Internal Medicine; Visit Provider Podiatrist
DX: B35.1 Tinea unguium (principal)
CPT/HCPCS: 36415; 80076

== ENCOUNTER 2023-05-28 09:02 | Outpatient (AMB) | payer OTHER, SELFPAY ==
[2023-05-28 09:11] VITALS: BP 132/72; PULSE 72; BMI 29.9
--- NOTE | 2023-05-28 09:11 | A.OFFVIS_ITS ---
Intake Vital Signs 05/28/23 09:11 Height 5 ft 6 in Weight 185 lb BMI 29.9 BP 132/72 Blood Pressure Location Lt brachial Position Sitting Pulse 72 Intake Visit Reasons: s/p colon Intake Note: Patient follw up for Colonoscopy results. Patient denies any GI issues. Admin Assistant Required: No Accompanied by: Self / Same As Patient Allergies Sulfa (Sulfonamide Antibiotics) Allergy (Unknown, Verified 05/28/23 09:11) RASH HPI HPI Comments History of Present Illness Details A 63 y/o female f/u after E PFSH Medical History Vitamin D deficiency Hyperlipidemia Impaired fasting glucose Obesity (BMI 30.0-34.9) Dupuytren's contracture of left hand Immunization declined Arthralgia of knee History of COVID-19 Vertigo Surgical History Hx laparoscopic cholecystectomy Hx of colonoscopy Family History Father Alcoholism Colon polyp Depression Mother Depression History of breast cancer Diabetes mellitus Social History Housing: House Patient Tobacco Use Status: Former Tobacco user Years Smoked: 3 months e-Cigarette/Vaping Use: Currently Using service: No Current occupational status: retired Cognitive needs: No Hearing needs: No Vision needs: Yes Physical Exam Vital Signs: Last Vital Signs Pulse 72 05/28/23 09:11 BP 132/72 05/28/23 09:11 BMI result Body Mass Index 29.9 Results Reviewed Results Reviewed: ndings: Terminal Ileum-normal Cecum:normal Right sided retroflexion- normal Ascending Colon: normal Transverse Colon -normal Descending Colon: diverticulosis, moderate Sigmoid Colon: sever diverticulosis with mucosal narrowing and angulation Rectum: Retroflexion with small internal hemorrhoids, grade I Anorectum - normal Colon preparation: [place] Bowel Preparation Scale Right colon; 2 Transverse colon: 3 Left colon; 2 (0 = Unprepared colon segment with mucosa not seen due to solid stool that cannot be cleared. 1 = Portion of mucosa of the colon segment seen, but other areas of the colon segment not well seen due to staining, residual stool and/or opaque liquid. 2 = Minor amount of residual staining, small fragments of stool and/or opaque liquid, but mucosa of colon segment seen well. 3 = Entire mucosa of colon segment seen well with no residual staining, small fragments of stool or opaque liquid) Impression and Post Procedure Diagnosis: internal hemorrhoids diverticular disease Plan: High fiber diet leaflet Avoid straining at stool, epsom salts and sitz bath, anusol supps or cream Repeat Colonoscopy in 10 years or earlier if clinically indicated Above findings were reviewed with the patient and relevant handouts were provided if indicated. Assessment & Plan Assessment & Plan (1) Diverticulosis of colon: Code(s): K57.30 - Diverticulosis of large intestine without perforation or abscess without bleeding Plan: ER protocol (2) Hemorrhoids: Code(s): K64.9 - Unspecified hemorrhoids Plan: avoid strain HFD Patient Instructions: Diverticulosis/itis- ER protocol HFD Avoid straining Call with concerns Foods to avoid ie:nuts, seeds, corn- etc- Coding Level of Care Code Est Pt Level 3 (15077) Diagnoses Diverticulosis of colon K57.30 Hemorrhoids K64.9 Time Spent (min) 25
== END 2023-05-28 09:55 | disposition home or self-care (01) ==
PROVIDERS: PCP Internal Medicine; Visit Provider Physician Assistant
DX: K57.30 Diverticulosis of large intestine without perforation or abscess without bleeding (principal); K64.9 Unspecified hemorrhoids
CPT/HCPCS: 99213

== ENCOUNTER → 2023-05-28 09:02 | Outpatient (BNVA) | payer OTHER, SELFPAY | PROVIDERS: PCP Internal Medicine; Visit Provider Physician Assistant ==

== ENCOUNTER 2023-08-06 09:36 | Outpatient (REF) | payer OTHER, SELFPAY ==
[2023-08-06 11:25] LABS: Alanine Aminotransferase 22 U/L (0-31); Albumin Level 4.1 g/dL (3.5-5.0); Alkaline Phosphatase 69 U/L (39-117); Aspartate Amino Transferase 20 U/L (5-31); Bilirubin Direct 0.1 mg/dL (0.0-0.5); Bilirubin Total 0.4 mg/dL (0.0-1.0); Total Protein 6.8 g/dL (6.5-8.0)
== END 2023-08-06 09:37 | disposition home or self-care (01) ==
LOC: HO.HMGCLDS 09:36
PROVIDERS: PCP Internal Medicine; Visit Provider Podiatrist
DX: B35.1 Tinea unguium (principal)
CPT/HCPCS: 36415; 80076

== ENCOUNTER 2023-12-03 10:55 | Outpatient (AMB) | payer OTHER, SELFPAY ==
--- NOTE | 2023-12-03 11:14 | MHC.PC.OV ---
Vital Signs 12/03/23 11:16 Height 5 ft 6 in Weight 191 lb BMI 30.8 BP 138/80 Blood Pressure Location Rt brachial Position Sitting Pulse 78 Pulse Source Pulse Oximeter Pulse Oximetry (%) 100 Oxygen Delivery Method Room Air Intake Visit Reasons: Annual PE Intake Note: Pt is here today for her PE: last mammogram 12/09/22, papsmear 11/20/21, colonoscopy 05/14/23 Allergies Sulfa (Sulfonamide Antibiotics) Allergy (Unknown, Verified 12/03/23 11:49) RASH Medication List - Last Reconciled 12/03/23 by Marcy Sutton MD No Known Home Meds Tobacco use date assessed: 12/03/23 Dental Screening Dental Screen Date: 12/03/23 Did you have a dental visit in the last 12 months?: Yes Did you have a dental problem in the last 6 months where you did not have access to dental care?: No Was dental information given to patient?: Patient has dentist HPI HPI Comments History of Present Illness Details 63-year-old lady with history of hyperlipidemia, impaired fasting glucose, obesity, here today for physical exam. She is currently not taking any medications at present, has been trying to follow a healthy diet . Has been feeling well with no complaints at present time.. She is up-to-date with her screening mammogram due again this month, last done 12/09/22, her last cervical screening was done 11/20/21 with negative findings, and she is up-to-date with her colon cancer screening, with less colonoscopy done 05/14/23. , to be repeated again in 10 years [facility] Medical History (Updated 12/03/23 @ 12:13 by Marcy Sutton MD) Family history of thyroid disease Vitamin D deficiency Hyperlipidemia Impaired fasting glucose Obesity (BMI 30.0-34.9) Dupuytren's contracture of left hand Immunization declined Arthralgia of knee History of COVID-19 Vertigo Surgical History Hx laparoscopic cholecystectomy Hx of colonoscopy Family History Father Alcoholism Colon polyp Depression Mother Depression History of breast cancer Diabetes mellitus Social History Housing: House Patient Tobacco Use Status: Former Tobacco user Years Smoked: 3 months e-Cigarette/Vaping Use: Former Use service: No Current occupational status: retired Cognitive needs: No Hearing needs: No Vision needs: Yes Questionnaire PHQ-9 Over the last 2 weeks, how often have you been bothered by any of the following problems? 1. Little interest or pleasure in doing things: not at all 2. Feeling down, depressed, or hopeless: not at all 3. Trouble falling or staying asleep, or sleeping too much: not at all 4. Feeling tired or having little energy: not at all 5. Poor appetite or overeating: not at all 6. Feeling bad about yourself - or that you are a failure or have let yourself or your family down: not at all 7. Trouble concentrating on things, such as reading the newspaper or watching television: not at all 8. Moving or speaking so slowly that other people could have noticed. Or the opposite - being so fidgety or restless that you have been moving around a lot more than usual: not at all 9. Thoughts that you would be better off or of hurting yourself in some way: not at all Total score: 0 Depression Screening Interpretation: Negative Depression Screening Done: Yes 39662 - PHQ-9 Billing: Yes Source: Developed by Drs. Cale Hernandez, Ronda Chadwick, Vishnu Leonard and colleagues, with an educational fritz from [employer]. Thrive Questionnaire Date Thrive assessed: 12/03/23 I am a: Patient What is your living situation today?: I have a steady place to live Within the past 12 months, did the food you bought not last and you didn't have the money to get more?: Often true Within the past 12 months, did you worry whether your food would run out before you got money to buy more?: Never true Do you have trouble paying for medicines?: No Do you have trouble getting transportation to medical appointments?: No Do you have trouble paying your heating and electricity bill?: No Do you have trouble taking care of your child, family member or friend?: No Do you have trouble with day-to-day activities such as bathing, preparing meals, shopping, managing finances, etc.?: No Are you interested in more education?: No Please select the resources that you would like help with: None Currently or been in a relationship where the following occur: Controlled Emotionally THRIVE Score: 2 AUDIT C Alcohol Use Questionnaire (AUDIT-C) 1. How often do you have a drink containing alcohol?: Monthly or less 2. How many drinks containing alcohol do you have on a typical day when you are drinking?: 1 or 2 3. How often do you have six or more drinks on one occasion?: Never Total Score: 1 FEDERICO-7 AMB Questionnaire FEDERICO-7 Date FEDERICO - 7 assessed: 12/03/23 Feeling nervous, anxious, or on edge: 1 = Several days Not being able to stop or control worryin = Several days Worrying too much about different things: 1 = Several days Trouble relaxin = Not at all Being so restless that it is hard to sit still: 0 = Not at all Becoming easily annoyed or irritable: 0 = Not at all Feeling afraid as if something awful might happen: 0 = Not at all Total FEDERICO-7 score (0-4 normal; 5-9 mild; 10-14 moderate; 15-21 severe): 3 Source: Developed by Drs. Cale Hernandez, Ronda Chadwick, Vishnu Leonard and colleagues, with an educational fritz from [employer]. FEDERICO-7 Assessment Billing FEDERICO-7 Assessment Tool: FEDERICO-7 Assessment 27881 Review of Systems Const Denies fever(s) Eyes Details: Areas sees [facility] for her routine eye exam Denies change in vision and Reports requires corrective lenses ENT Details: Gets dental prophylaxis every 6 Reports no additional complaints Card Denies chest pain and Denies dyspnea Resp Denies dyspnea GI Denies abdominal pain, Denies hematochezia, Denies change in bowel habits, Denies heartburn, Denies nausea and Denies vomiting Reports no additional complaints Musc Reports no additional complaints Skin/Breast Details: Presence of keratosis, sees [facility] yearly Denies breast swelling, Denies breast skin changes, Denies breast pain, Denies breast mass, Denies change in breast shape and Denies rash Neuro Denies behavioral changes Psych Reports as per HPI, Denies behavioral changes, Denies change in appetite, Denies difficulty concentrating and Denies panic attacks Endo Reports no additional complaints Ayden/Lymph Reports no additional complaints Aller/Immun Reports no additional complaints Physical exam (Primary Care) Vital Signs: Last Vital Signs Pulse 78 12/03/23 11:16 BP 138/80 12/03/23 11:16 Pulse Ox 100 12/03/23 11:16 Oxygen Delivery Method Room Air 12/03/23 11:16 BMI result Body Mass Index 30.8 Tobacco/Smoking Status: Tobacco use Status Tobacco use date assessed 12/03/23 12/03/23 11:19 Patient Tobacco Use Status Former Tobacco user 12/03/23 11:19 e-Cigarette/Vaping Use Former Use 12/03/23 11:22 PHQ-9: PHQ-9 Score PHQ-9: Total score 0 12/08/23 00:24 Depression Screening Interpretation: Negative Thrive Assessment: Date of Thrive Assessment Date Thrive assessed 12/03/23 12/03/23 11:22 Currently or been in a relationship where the following occur: Controlled Emotionally Advance Care Planning discussion: Completed/Scanned Date of discussion: 12/03/23 Who was present: patient Forms completed: Health Care Proxy Time spent: 16-45 minutes Actual minutes spent: 16 Const General: cooperative, comfortable and no acute distress Orientation/consciousness: patient oriented x3 Limitations: no limitations HENMT Ears: hearing grossly normal bilaterally, external ears normal, TM's normal bilaterally and EAC's normal General nose exam: Normal external nose present and No nasal discharge present Mouth: Normal oral and palatal mucosa present, oropharynx normal and moist mucous membranes Eyes General: appearance normal, both eyes and all related structures Conjunctivae: conjunctivae normal Pupils: Equal, round and reactive pupils present EOM: EOMs intact bilaterally Neck Neck: Yes full ROM, Yes no lymphadenopathy and Yes supple Chest Chest palpation & inspection: normal inspection of the chest Breast/axilla palpation: normal palpation of the breasts Resp Effort & Inspection: normal respiratory effort and able to speak in complete sentences Auscultation: clear to auscultation bilaterally Cardio Rate: regular rate Rhythm: regular rhythm Heart sounds: S1 normal heart sound present and S2 normal heart sound present GI Inspection: Yes normal to inspection Auscultation: normal bowel sounds General: Yes no CVA tenderness Back/Spine/Pelvis Back: no CVA tenderness Skin Other: Scattered hyper pigmented slightly raised lesions on upper back, abdomen and arms Neuro General: patient oriented x3, gait normal, tone normal, moves all extremities, Normal light touch and pain sensation and no focal motor deficits Cranial nerves: Yes Equal, round and reactive pupils present Cognition (Neuro): normal cognition Gait exam (Neuro): Normal gait present Motor exam (neuro): 5/5 motor strength present throughout Extrem General: Yes full ROM, Yes no joint enlargement, Yes no clubbing, cyanosis or edema and Yes normal gait Psych Appearance: grossly normal and well kempt Mental Status: mental status grossly normal Speech and movement: Normal speech and movement present Affect: normal affect Attitude: cooperative Thought process: Normal thought process present Results Reviewed Results Reviewed: Name: Talisha Peralta Age/Sex: 63/F : 1960 Unit#: [id number] Attend Dr: Delaney Dwyer Re08/06/23 Status: DEP REF Location: [facility] Disch: SPEC : [id number] DELTA: 08/06/23 STATUS: COMP REQ : [id number] RECD: 08/06/23-[address]: Delaney Dwyer COMP: 08/06/23-5 ENTERED: 08/06/23-[address]: Marcy Sutton MD ORDERED: Liver Panel Test Result Flag Reference Total Bili 0.4 0.0-1.0 mg/dL Direct Bili 0.1 0.0-0.5 mg/dL AST (GOT) 20 5-31 U/L ALT (GPT) 22 0-31 U/L Protein, Total 6.8 6.5-8.0 g/dL Alb 4.1 3.5-5.0 g/dL Alk Phos 69 39-117 U/L Assessment and Plan Assessment & Plan (1) Annual visit for general adult medical examination with abnormal findings: Code(s): Z00.01 - Encounter for general adult medical examination with abnormal findings Plan: Will check appropriate labs. Recommended dental visit every 6 months and regular eye exams, at least every 2 years. Take adequate calcium in diet and vitamin-D 3 at 2000 IU per cap once a day, in addition to weight-bearing exercises to help maintain good muscle tone and weight control. Instructed to do self-breast exam, and remind to get yearly mammogram. Reminded to get her yearly flu vaccine COVID booster she is up-to-date with her screening colonoscopies (2) Impaired fasting glucose: Code(s): R73.01 - Impaired fasting glucose Plan: Your previous fasting blood sugars were elevated above 100 mg/dL. Impaired glucose metabolism increases the risk for developing diabetes mellitus type 2, as well as heart attack and stroke later on. Lifestyle changes that promotes weight loss, healthy eating habits, and regular exercise are important, and can prevent the progression to diabetes. Referred to special procedure technologist for dietary guidance (3) Hyperlipidemia: Code(s): E78.5 - Hyperlipidemia, unspecified Plan: Reinforced importance of adhering to low-cholesterol diet and regular exercise, at least 30 minutes 3 to 4 times a week. Advised patient to make healthy food choices, eat more fruits, vegetables, whole grains, wild caught fish and low-fat dairy. Limit amount of meat and fried or fatty food products, as well as processed foods and fast foods. Fasting lipid panel ordered. Referred to special procedure technologist for dietary guidance (4) Family history of thyroid disease: Code(s): Z83.49 - Family history of other endocrine, nutritional and metabolic diseases Plan: Ordered TSH with reflex free T4, patient currently asymptomatic (5) Advanced directives, counseling/discussion: Code(s): Z71.89 - Other specified counseling Plan: Initiated the conversation about Advanced Directives. Advanced Directives help patients prepare for current and future decisions about their medical treatment and place of care. Discussed with patient that it is a process where a patients current condition and prognosis are reviewed, their wishes for information regarding their illness are elicited, and likely medical dilemmas are presented and options discussed. Healthcare proxy form completed today The form can be amended as needed, reviewed yearly and make changes as needed Orders: Orders TSH reflex Free T4 12/04/23 Z83.49 - Family history of other endocrine, nutritional and metabolic diseases Complete Blood Count Auto Diff 12/04/23 E55.9 - Vitamin D deficiency, unspecified, E66.9 - Obesity, unspecified, E78.5 - Hyperlipidemia, unspecified, R73.01 - Impaired fasting glucose Basic Metabolic Panel Fasting 12/04/23 E55.9 - Vitamin D deficiency, unspecified, E66.9 - Obesity, unspecified, E78.5 - Hyperlipidemia, unspecified, R73.01 - Impaired fasting glucose Lipid Panel 12/04/23 E55.9 - Vitamin D deficiency, unspecified, E66.9 - Obesity, unspecified, E78.5 - Hyperlipidemia, unspecified, R73.01 - Impaired fasting glucose Vitamin D 25-OH Total 12/04/23 E55.9 - Vitamin D deficiency, unspecified, E66.9 - Obesity, unspecified, E78.5 - Hyperlipidemia, unspecified, R73.01 - Impaired fasting glucose Coding Level of Care Code Est Pt [facility] Care [id number]([id number]) Diagnoses Annual visit for general adult medical examination with abnormal findings Z00.01 Impaired fasting glucose R73.01 Hyperlipidemia E78.5 Family history of thyroid disease Z83.49 Advanced directives, counseling/discussion Z71.89 Additional Codes FEDERICO-7 Assessment Billing - FEDERICO-7 Assessment Tool: FEDERICO-7 Assessment 48966 ([id number]) Vital Signs *Quality* - Advance Care Planning discussion: Completed/Scanned ([id number]) Vital Signs *Quality* - Time spent: 16-45 minutes ([id number])
[2023-12-03 11:16] VITALS: BP 138/80; PULSE 78; O2SAT 100; BMI 30.8
== END 2023-12-03 17:00 | disposition home or self-care (01) ==
PROVIDERS: PCP Internal Medicine; Visit Provider Internal Medicine
DX: Z00.01 Encounter for general adult medical examination with abnormal findings (principal); R73.01 Impaired fasting glucose; E78.5 Hyperlipidemia, unspecified; Z83.49 Family history of other endocrine, nutritional and metabolic diseases; Z71.89 Other specified counseling; Z00.00 Encounter for general adult medical examination without abnormal findings

== ENCOUNTER → 2023-12-03 10:55 | Outpatient (BNVA) | payer OTHER, SELFPAY | PROVIDERS: PCP Internal Medicine; Visit Provider Internal Medicine | DX: Z00.01 Encounter for general adult medical examination with abnormal findings (principal); R73.01 Impaired fasting glucose; E78.5 Hyperlipidemia, unspecified; Z83.49 Family history of other endocrine, nutritional and metabolic diseases; Z71.89 Other specified counseling | CPT/HCPCS: 96127 ==

== ENCOUNTER 2023-12-04 08:57 | Outpatient (REF) | payer OTHER, SELFPAY ==
[2023-12-04 10:10] LABS: MANUAL DIFF FLAG NO
[2023-12-04 10:27] LABS: Basophils Absolute Auto 0.1 X10*3/uL (0.0-0.2); Eosinophils Absolute Auto 0.1 X10*3/uL (0.0-0.4); Eosinophils Percent Auto 1.6 % (0-4); Hematocrit 39.5 % (37.0-47.0); Hemoglobin 13.2 g/dl (12.0-16.0); Imm Gran Abs Auto 0.02 X10*3/uL (0.00-0.03); Imm Gran Pct Auto 0.4 % (0.0-0.4); Lymphocytes Absolute Auto 2.4 X10*3/uL (1.2-4.9); Lymphocytes Percent Auto 48.1 % (20-40); Mean Corpuscular HGB Conc 33.4 g/dl (31.0-35.0); Mean Corpuscular Hemoglobin 31.1 pg (27.0-33.0); Mean Corpuscular Volume 92.9 fL (80.0-98.0); Monocytes Absolute Auto 0.4 X10*3/uL (0.1-1.2); Monocytes Percent Auto 7.2 % (2-11); Neutrophils Absolute Auto 2.1 x10*3/uL (2.0-8.3); Neutrophils Percent Auto 41.7 % (45-73); Platelet Count 259 X10*3/uL (160-400); Red Blood Count 4.25 X10*6/uL (4.20-5.50); Red Cell Distribution Width 12.8 % (11.0-16.0)
[2023-12-04 11:10] LABS: Anion Gap 11 (12-20); Blood Urea Nitrogen 15 mg/dL (9-16); Calcium 9.4 mg/dL (8.4-10.2); Carbon Dioxide 27 mmol/L (22-29); Chloride 109 mmol/L (96-108); Cholesterol 204 mg/dL (<200); Estimated Glomerular Filt Rate > 60; Glucose Fasting 107 mg/dL (60-99); HDL Cholesterol 57 mg/dL (>40); LDL Cholesterol Calculated 128 mg/dL (<100); Potassium 4.5 mmol/L (3.3-5.1); Sodium 142 mmol/L (135-145); Triglycerides 98 mg/dL (<150)
[2023-12-04 11:19] LABS: TSH reflex Free T4 1.77 uIU/mL (0.32-4.0); Vitamin D 25-OH Total 42.8 ng/mL (>30)
== END 2023-12-04 08:58 | disposition home or self-care (01) ==
LOC: HO.HMGCLDS 08:57
PROVIDERS: PCP Internal Medicine; Visit Provider Internal Medicine
DX: E55.9 Vitamin D deficiency, unspecified (principal); R73.01 Impaired fasting glucose; E78.5 Hyperlipidemia, unspecified; E66.9 Obesity, unspecified; Z83.49 Family history of other endocrine, nutritional and metabolic diseases
CPT/HCPCS: 36415; 80048; 80061; 82306; 84443; 85025

== ENCOUNTER → 2023-12-11 11:02 | Outpatient (BNVA) | payer OTHER, SELFPAY | PROVIDERS: PCP Internal Medicine ==

== ENCOUNTER 2023-12-15 09:07 | Outpatient (REF) | payer OTHER, SELFPAY ==
--- NOTE | ~2023-12-15 | MM_ITS ---
EXAMINATION: MM SCREENING DIGITAL BREAST TOMOSYNTHESIS, BILATERAL CLINICAL INFORMATION: Screening. Asymptomatic. COMPARISON: Mammography: Comparison is made with available priors TECHNIQUE: Digital breast mammography with tomosynthesis is performed in both the craniocaudal and mediolateral oblique views along with computer-aided detection (CAD). FINDINGS: There are scattered areas of fibroglandular density (ACR BI-RADS breast composition Category b). There are no significant masses, abnormal calcifications, or other abnormalities. MM/MM tomosynthesis screening BI IMPRESSION: No mammographic evidence of malignancy. ASSESSMENT: BI-RADS BI-RADS 1 - Negative RECOMMENDATION: Routine annual mammography screening. 1 year F/U This examination should not preclude the clinical evaluation of a suspicious palpable abnormality. This patient's information was entered into a reminder system with a target due date for their next mammogram. Electronically signed by: Susana Pedroza DO 12/25/2023 06:35 PM EDT
== END 2023-12-15 09:08 | disposition home or self-care (01) ==
LOC: HO.MAMMO 09:07
PROVIDERS: PCP Internal Medicine; Visit Provider Internal Medicine
DX: Z12.31 Encounter for screening mammogram for malignant neoplasm of breast (principal)
CPT/HCPCS: 77063; 77067

== ENCOUNTER → 2023-12-15 09:15 | Outpatient (BNV) | payer OTHER, SELFPAY | PROVIDERS: PCP Internal Medicine; Visit Provider Internal Medicine | DX: Z12.31 Encounter for screening mammogram for malignant neoplasm of breast (principal) | CPT/HCPCS: 77063; 77067 ==

== ENCOUNTER 2023-12-22 12:17 | Outpatient (AMB) | payer OTHER, SELFPAY ==
--- NOTE | 2023-12-22 12:33 | A.OFFVIS_ITS ---
VS Expanded 12/22/23 12:34 12/22/23 12:55 Height 5 ft 6 in 5 ft 6 in Weight 192 lb 3.889 oz 192 lb BMI 31.0 31.0 Intake Visit Reasons: Hyperlipidemia/CONFIRMED Allergies Sulfa (Sulfonamide Antibiotics) Allergy (Unknown, Verified 12/03/23 11:49) RASH Nutrition Presentation Details: Pt presents for MNT for hyperlipidemia food frequency fruits: 1-2/d ve x/wk dairy: 2-4 /d starches> 20 /d omega 3: 0-1/wk beveages: water/tea/milk etoh/smoking---- physical activity: DLA BS Monitoring Most Recent Diabetes Results: Cholesterol 204 mg/dL (<200) H 12/04/23 HDL Cholesterol 57 mg/dL (>40) 12/04/23 Triglycerides 98 mg/dL (<150) 12/04/23 Creatinine 0.80 mg/dL (0.5-1.4) 12/04/23 Blood Urea Nitrogen 15 mg/dL (9-16) 12/04/23 Sodium 142 mmol/L (135-145) 12/04/23 Potassium 4.5 mmol/L (3.3-5.1) 12/04/23 Chloride 109 mmol/L (96-108) H 12/04/23 Carbon Dioxide 27 mmol/L (22-29) 12/04/23 Calcium 9.4 mg/dL (8.4-10.2) 12/04/23 AST 20 U/L (5-31) 08/06/23 ALT 22 U/L (0-31) 08/06/23 Total Protein 6.8 g/dL (6.5-8.0) 08/06/23 Albumin 4.1 g/dL (3.5-5.0) 08/06/23 HDJ-[id number]-Xs.Jeor Equation Height: 5 ft 6 in Weight: 192 lb Resting Metabolic Rate: 1441.90 Calculated Activity Level: Mild Activity Calories Needed to Maintain Weight: 1982.61 Diagnosis Nutrition problem #1: food nutri know defi As related to (etiology) #1: diagnosis As evidenced by (sign/symptom) #1: knowledge deficit of diet [facility] Medical History (Updated 12/03/23 @ 12:13 by Marcy Sutton MD) Family history of thyroid disease Vitamin D deficiency Hyperlipidemia Impaired fasting glucose Obesity (BMI 30.0-34.9) Dupuytren's contracture of left hand Immunization declined Arthralgia of knee History of COVID-19 Vertigo Surgical History Hx laparoscopic cholecystectomy Hx of colonoscopy Family History Father Alcoholism Colon polyp Depression Mother Depression History of breast cancer Diabetes mellitus Social History Housing: House Patient Tobacco Use Status: Former Tobacco user Years Smoked: 3 months e-Cigarette/Vaping Use: Former Use service: No Current occupational status: retired Cognitive needs: No Hearing needs: No Vision needs: Yes Assessment & Plan Assessment & Plan (1) Hyperlipidemia: Code(s): E78.5 - Hyperlipidemia, unspecified Category: Medical Plan: Wt: 87 Kg ( 01/07 ) Est kcal needs as per MSJ: 2000 (40% carb, 30% protein/fat) Est fluid needs as per 25-30 ml/d: 2600 Est prot per day as per 1 g/kg bw: 87 Recommend fiber intake : 8-10 g per day and gradually increase to 25-28 g per day for women and 35-38 g for men or as tolerated Recommend sodium intake per day : less than 2300 mg Educated patient on: ( R = reviewed V = verbalizes understanding N/R = needs review N/A = not applicable * Food sources of carbohydrate, adequate serving sizes and its role in various health conditions: R V N/R * Differences between complex carbohydrates a simple carbohydrates, role of fiber in diet: R * Lean protein sources of foods: R V NR * Differences between types of fats and role in diet (mono on saturated fat fatty acids, saturated fatty acids, trans fats): R * Food sources of sodium in salt and healthy modifications for heart health in kidney health: R V R/V * Vitamins and minerals: R V N/R * Healthy plate method concept: R V N/R * Physical activity: Benefits a precaution: R Plan 2600 fluids Patient Instructions: Include fiber rich foods in your diet by choosing whole grains, adding veg to the meals gradually increasing fiber by 4-6 every 4 days, up to 25/day or as tolerated increase water as you increase fiber intake Reduce on saturated fats- see list of saturated fat foods Coding Level of Care Code Nutr Indiv Intake (52780) Diagnoses Hyperlipidemia E78.5 Time Spent (min) 30
[2023-12-22 12:34] VITALS: BMI 31.0
[2023-12-25 12:19] VITALS: BMI 31.0
== END 2023-12-22 13:14 | disposition home or self-care (01) ==
PROVIDERS: PCP Internal Medicine; Visit Provider Dietitian, Registered
DX: E78.5 Hyperlipidemia, unspecified (principal)

== ENCOUNTER → 2023-12-22 12:17 | Outpatient (BNVA) | payer OTHER, SELFPAY | PROVIDERS: PCP Internal Medicine; Visit Provider Dietitian, Registered | DX: E78.5 Hyperlipidemia, unspecified (principal); Z71.3 Dietary counseling and surveillance | CPT/HCPCS: 97802 ==

== ENCOUNTER 2024-01-14 09:59 | Outpatient (REF) | payer OTHER, SELFPAY ==
--- NOTE | ~2024-01-14 | MM_ITS ---
EXAMINATION: BONE DENSITOMETRY CLINICAL INDICATION: Menopause. COMPARISON: Baseline BD dated 10/30/2017. TECHNIQUE: Using a [employer] DXA System (software version: 13.1) manufactured by [employer], dual-energy x-ray absorptiometry was performed of the lumbar spine and left hip. The images are of good technical quality. Summary results are attached. FINDINGS: LEFT FEMUR, NECK: Current: BMD 0.925 g/cm2, Z-score 0.2, T-score -0.8, normal. Baseline: BMD 0.933 g/cm2. LEFT FEMUR, TOTAL: Current: BMD 1.055 g/cm2, Z-score 1.1, T-score 0.4, normal, 3.6% increase from baseline (<5% change is not significant). Baseline: BMD 1.018 g/cm2. AP SPINE L1-L4: Current: BMD 1.272 g/cm2, Z-score 1.6, T-score 0.8, normal, 1.5% decrease from baseline (<5% change is not significant). Baseline: BMD 1.291 g/cm2. IDENTIFIED RISK FACTORS: Menopause. HISTORY OF FRACTURE: None listed. MEDICATIONS: None listed. MM/XR DEXA axial skeleton IMPRESSION: 1. DIAGNOSIS: Normal bone density based on the lowest T-score value of -0.8 in the femoral neck applying World Health Organization criteria. 2. 10-YEAR FRACTURE RISK PREDICTION, FRAX: According to the guidelines, FRAX calculation should only be performed on patients in the osteopenia bone density category. Therefore, FRAX was not performed on this patient. 3. Treatment Recommendations: NOF guidelines recommend consideration for treatment in postmenopausal women and men age 50 and older presenting with the following: -A hip or vertebral (clinical or morphometric) fracture. -T-score less than or equal to -2.5 at the femoral neck or spine after appropriate evaluation to exclude secondary causes. -Low bone mass at the hip or spine and a 10-year fracture probability by FRAX of greater than or equal to 3% for hip fracture or greater than or equal to 20% for major osteoporotic fracture based on the [place] adapted WHO algorithm. 4. Other Recommendations: All treatment decisions require clinical judgment and consideration of individual patient factors, including patient preferences, comorbidities, previous drug use, risk factors not captured in the FRAX model (e.g. frailty, falls, vitamin D deficiency, increased bone turnover, interval significant decline in bone density) and possible under or overestimation of fracture risk by FRAX. FUTURE SCAN RECOMMENDATION: People with diagnosed cases of osteoporosis or at high risk for fracture should have regular bone mineral density tests. For patients eligible for Medicare, routine testing is allowed once every 2 years. The testing frequency can be increased to one year for patients who have rapidly progressing disease, those who are receiving or discontinuing medical therapy to restore bone mass, or have additional risk factors. Electronically signed by: Monico Ro MD 01/15/2024 09:03 AM EDT
== END 2024-01-14 10:00 | disposition home or self-care (01) ==
LOC: HO.MAMMO 09:59
PROVIDERS: PCP Internal Medicine; Visit Provider Internal Medicine
DX: Z13.820 Encounter for screening for osteoporosis (principal); Z78.0 Asymptomatic menopausal state
CPT/HCPCS: 77080

== ENCOUNTER 2024-02-02 10:29 | Outpatient (AMB) | payer MEDICARE, SELFPAY ==
--- NOTE | 2024-02-02 10:51 | A.OFFVIS_ITS ---
VS Expanded 02/02/24 10:52 Height 5 ft 6 in Weight 192 lb 0.362 oz BMI 31.0 Intake Visit Reasons: hyperlipidemia/CONFIRMED Allergies Sulfa (Sulfonamide Antibiotics) Allergy (Unknown, Verified 12/03/23 11:49) RASH Nutrition Presentation Details: Pt presents for MNT for hyperlipidemia Pt reports gradually working on diet modifications keeping physically active : rowing 1 hr twice/wk, walking on weekends BS Monitoring Most Recent Diabetes Results: Cholesterol 204 mg/dL (<200) H 12/04/23 HDL Cholesterol 57 mg/dL (>40) 12/04/23 Triglycerides 98 mg/dL (<150) 12/04/23 Creatinine 0.80 mg/dL (0.5-1.4) 12/04/23 Blood Urea Nitrogen 15 mg/dL (9-16) 12/04/23 Sodium 142 mmol/L (135-145) 12/04/23 Potassium 4.5 mmol/L (3.3-5.1) 12/04/23 Chloride 109 mmol/L (96-108) H 12/04/23 Carbon Dioxide 27 mmol/L (22-29) 12/04/23 Calcium 9.4 mg/dL (8.4-10.2) 12/04/23 PFSH Medical History (Updated 12/03/23 @ 12:13 by Marcy Sutton MD) Family history of thyroid disease Vitamin D deficiency Hyperlipidemia Impaired fasting glucose Obesity (BMI 30.0-34.9) Dupuytren's contracture of left hand Immunization declined Arthralgia of knee History of COVID-19 Vertigo Surgical History Hx laparoscopic cholecystectomy Hx of colonoscopy Family History Father Alcoholism Colon polyp Depression Mother Depression History of breast cancer Diabetes mellitus Social History Housing: House Patient Tobacco Use Status: Former Tobacco user Years Smoked: 3 months e-Cigarette/Vaping Use: Former Use service: No Current occupational status: retired Cognitive needs: No Hearing needs: No Vision needs: Yes Assessment & Plan Assessment & Plan (1) Hyperlipidemia: Code(s): E78.5 - Hyperlipidemia, unspecified Category: Medical Plan: Wt: 87 Kg ( 01/07 ), 02/07 Est kcal needs as per MSJ: 2000 (40% carb, 30% protein/fat) Est fluid needs as per 25-30 ml/d: 2600 Est prot per day as per 1 g/kg bw: 87 Recommend fiber intake : 8-10 g per day and gradually increase to 25-28 g per day for women and 35-38 g for men or as tolerated Recommend sodium intake per day : less than 2300 mg Educated patient on: ( R = reviewed V = verbalizes understanding N/R = needs review N/A = not applicable * Food sources of carbohydrate, adequate serving sizes and its role in various health conditions: R V N/R * Differences between complex carbohydrates a simple carbohydrates, role of fiber in diet: R * Lean protein sources of foods: R V NR * Differences between types of fats and role in diet (mono on saturated fat fatty acids, saturated fatty acids, trans fats): R * Food sources of sodium in salt and healthy modifications for heart health in kidney health: R V R/V * Vitamins and minerals: R V N/R * Healthy plate method concept: R * Physical activity: Benefits a precaution: R Plan 2600 fluids Patient Instructions: Choose yogurt with fruit as bedtime snack Continue to work on reducing on fats (pastries, amount of butter/creamy sauces, fried foods) Coding Level of Care Code Nutr Indiv Subseq (98990) Diagnoses Hyperlipidemia E78.5 Time Spent (min) 25
[2024-02-02 10:52] VITALS: BMI 31.0
== END 2024-02-02 11:18 | disposition home or self-care (01) ==
PROVIDERS: PCP Internal Medicine; Visit Provider Dietitian, Registered
DX: E78.5 Hyperlipidemia, unspecified (principal)

== ENCOUNTER → 2024-02-02 10:29 | Outpatient (BNVA) | payer OTHER, SELFPAY | PROVIDERS: PCP Internal Medicine; Visit Provider Dietitian, Registered | DX: E78.5 Hyperlipidemia, unspecified (principal); Z71.3 Dietary counseling and surveillance | CPT/HCPCS: 97803 ==

== ENCOUNTER 2024-03-01 10:03 | Outpatient (AMB) | payer MEDICARE, SELFPAY ==
--- OUTSIDE RECORDS SUMMARY | 2024-03-01 10:06 | XMS_ITS ---
[facility] Organization [facility] Address [address] [place] [address] Care Team Providers Care Produce Service Team Member Name Role Phone Herman LARSON, Marcy Paige Primary Care Provider Un available ChaseDelaney cedillo Unavailable [phone] Sandy Duff Unavailable [phone] Allergies Allergen (clinical drug ingredient) Drug/Non Drug [...] 07/07/2023 Encounters Encounter Location Date Provider Diagnosis [facility] [address] [place] [address] 07/07/2023 Sandy Duff Plan Of Treatment No Information Progress Notes * TAYOTalisha ROMO LDOB:1960 (64 yo F)Acc No.[id number]:07/07/2023 Progress Notes Patient:?Talisha CR Rylie Provider:?Sandy Duff DPM :1960???Age:63 Y???Sex:Female D ate:07/07/2023 Address: [id number] Pcp:Estefany De La Cruz Subjective: * Chief Complaints: * ???1. Seen Sooner. * ROS:?General/Constitutional:?Nausea?denies.?Vomiting?denies.?Hunger Thirst?denies.?Loss appetite?denies.?Chills?denies.?Fatigue?denies.?Fever?denies.?Night Sweats?denies.?Unexplained weight loss?denies.?Unexplained weight gain?denies.?HEENTM:?Dentures?denies.?Dizziness?denies.?Glasses/contacts?admits.?Retinopathy?de nies.?Blurred/double vision?denies.?TMJ?denies.?Discharge/drainage?denies.?Implants?denies.?Sore throat?denies.?Dental implants?denies.?Hard of hearing ?denies.?Difficulty chewing/swallowing/speaking?denies.?Nose bleeds?denies.?Sore mouth?denies.?Respiratory:?On Oxygen?denies.?Pneumonia/pleurisy?denies.?Bronchitis?denies.?Emphysema?denies.?C oughing?denies.?Cough blood?denies.?Shortness of breath?denies.?Wheezing?denies.?Cardiovascular:?Pacemaker?denies.?MVP?denies.?WPW?denies.?CHF?denies.?Heart attack?denies.?Septal defect?denies.?Rapid beat?denies.?Chest pain ?denies.?Atrial Fib.?denies.?Murmur/Palpitations?denies.?Gastrointestinal:?Hemorrhoids?denies.?Stomach/Abdominal pain?denies.?Dark blood stool?denies.?Irritable bowel ?denies.?Constipation?denies.?Diarrhea?denies.?Hematology:?Swelling?denies.?Clots?denies.?Varicose Veins?denies.?Bruising?denies.?Bleeding problem?denies.?Genitourinary:?Blood urine?denies.?Frequent/Painfu/urination/bladder control?denies.?Kidney stones?denies.?Infection (UTI)?denies.?Nephropathy?denies.?sex trans dis (STD)?denies.?Prostate?denies.?Musculoskeletal:?Hammertoes?denies.?Bunions?denies.?Back Pain?denies.?Muscle Cramps/ Resting?denies.?Muscle cramps / walking?denies.?Generalized aches and pains?denies.?Weakness?denies.?Integ.:?Lu?denies.?Scars?denies.?Corns/calluses?denies.?Ingrown nails?denies.?Painful nails?denies.?Open Sores?denies.?Rashes?denies.?Neurologic:?Difficulty sleeping?denies.?Brain disorder?denies.?Numbness?denies.?Balance trouble?denies.?Confusion?denies.?Fainting/blackouts?denies.?Tingling?denies.?Tr emors?denies.? * Medical History:?Eliecer lewis problems. * Surgical History:?Eliecer chen removal 2004. * Family History:?Mother: dece ased, diagnosed with Diabetic - NIDDM, Other malignant neoplasm of unspecified site.?Father: .? * Social History:?Tobacco Use:?Tobacco Use/Smoking?Are you a:?nonsmoker ?Additional Findings: Tobacco Non-User?Current non-smoker ?Tobacco use other than smoking?Are you an other tobacco user??No ???Drugs/Alcohol:?Drugs?Have you used drugs other than those for medical reasons in the past 12 months??Yes ?Alcohol Screen?Did you have a drink containing alcohol in the past year??Yes ?Points?0 ?Interpretation?Negative ???Miscellaneous:?Caffeine: yes. ?Children: yes, 1. ?Exercise: yes, hiking, gym, bike riding, writing, row, write. ?Marital status: . * Allergies:?Bactrim. Objective: * Vitals:?Ht: 5 ft 6 in, Wt:17 5, BMI:28.24, Shoe size: 9.5-10, Ht-cm: 167.64 cm, Wt-k.38 kg. Assessment: Plan: * Treatment: * Images: * The named appointment provid er may or may not be the originator of this progress note, and it is not deemed complete until electronically signed by the appointment provider. Sign off status: Pending * Provider:?Sandy Duff DPM Date:?2023 Generated for Ken rivas/Boy/Raffiitting on:?03/01/2024 10:06 AM EST
--- OUTSIDE RECORDS SUMMARY | 2024-03-01 10:06 | XMS_ITS ---
[facility] [place] Address [address] [place] [address] Care Team Providers Care Chemical Research Technician Name Role Phone Herman LARSON, Marcy Paige Primary Care Provider Un available Delaney Dwyer Unavailable [phone] REASON FOR VISIT Labs Encounters Encounter Location Date Provider Diagnosis [facility] [address] [place] [address] 08/07/2023 Delaney Dwyer Plan Of Treatment No Information Progress Notes * TAYOTalisha GUALLPA LDOB:1960 (63 yo F)Acc No.[id number]:08/07/2023 Patient:?Talisha Peralta :1960???Age:63 Y???Sex:Female Address: [place], [address] * true * Date:? Generated for Printi ng/Fajoseg/eTransmitting on:?03/01/2024 10:05 AM EST
--- OUTSIDE RECORDS SUMMARY | 2024-03-01 10:06 | XMS_ITS | Patient Health Record ---
Author Organization [facility] Peyton tapia [place] Address [address] [place] [address] Care Team Providers Care Bow Maker Production Name Role Phone Herman LARSON, Marcy Paige Primary Care Provider Un available Delaney Dwyer Unavailable [phone] Black, Sandy Unavailable [phone] Allergies Allergen (clinical drug ingredient) Drug/Non Drug Allergy documented on EMR Reaction Allergy Type Onset Date Status sulfamethoxazole / trimethoprim Bactrim Unknown Drug Allergy Active Reason For Referral No Information Medications Medication SIG (Take, Route, Frequency, Duration) Notes Start Date End Date Status Ciclopirox Olamine 0.77 % 1 application Externally Twice a day for 30 days Active Lamisil 250mg 1 tablet orally Once daily for 30 days Active Social History Tobacco Use: Social History Observation Description Date Details (start date - stop date) Never Smoker NA - NA Tobacco Use/Smoking Question Answer Notes Are you a: nonsmoker Additional Findings: Tobacco Non-User Current no n-smoker Alcohol Screen Question Answer Notes Did you have a drink contain ing alcohol in the past year? Yes How often did you have a dri nk containing alcohol in the past year? 2 to 3 times a week (3 points) Points 3 Interpretation Positive Tobacco use other than smoking: Question Answer Notes Are you an other tobacco user? No Vital Signs Height 5ft6in in 08/06/2023 Weight 180 lbs 08/06/2023 BMI 29.05 kg/m2 08/06/2023 Encounters Encounter Location Date Provider Diagnosis [address] [place] [address] 05/26/2023 Delaney Dwyer Fungal infection of nail B35.1 ; Pain in right toe(s) M79.674 and Tinea pedis of both feet B35.3 [facility] [address] [address] 08/06/2023 Delaney Dwyer Fungal infection of nail B35.1 ; Pain in right toe(s) M79.674 and Tinea pedis of both feet B35.[address] [facility] [address] 05/07/2023 Sandy Black [facility] [address] [address] 05/29/2023 Delaney Dwyer [facility] [address] 08/07/2023 Delaney Dwyer Assessments Encounter Date Diagnosis (ICD Code) Assessment Notes Treatment Notes Treatment Clinical Notes Section Notes 05/26/2023 Pain in right toe(s) (ICD-10 - M79.674) 05/26/2023 Fungal infection of nail (ICD-10 - B35.1) Rx management (4) 08/06/2023 Pain in right toe(s) (ICD-10 - M79.674) 08/06/2023 Fungal infection of nail (ICD-10 - B35.1) Rx management (4) 08/06/2023 Tinea pedis of both feet (ICD-10 - B35.3) 05/26/2023 Tinea pedis of both feet (ICD-10 - B35.3) Plan Of Treatment Pending Test Test Name Order Date *Liver Function Test (LFT) 05/26/2023 *Liver Function Test (LFT) 08/06/2023 Insurance Providers Payer Name Payer Address Payer Phone Subscriber Number Group Number Insured Name Patient Relationship to Insured Coverage Start Date Coverage End Date [facility] [address] [place] [address] [id number] Talisha Peralta Self - patient is the insured Medical (General) History Medical History History ICD Code Gall bladder problems Surgical History Surgery Date(Month/Year) Gall bladder removal 2004
--- OUTSIDE RECORDS SUMMARY | 2024-03-01 10:06 | XMS_ITS ---
Author Organization [facility] Address [address] [place] [address] Care Team Providers Care Overcaster Name Role Phone Herman LARSON, Marcy Paige Primary Care Provider Un available Delaney Dwyer Unavailable [phone] Allergies Allergen (clinical drug ingredient) Drug/Non Drug Allergy documented on EMR Reaction Allergy Type Onset Date Status sulfamethoxazole / trimethoprim Bactrim Unknown Drug Allergy Active REASON FOR VISIT pt states last pcp visit 11/2022, Fungal Nails, Skin Problem Medications Medication SIG (Take, Route, Frequency, Duration) [...] 08/06/2023 Encounters Encounter Location Date Provider Diagnosis [facility] [address] [place] [address] 08/06/2023 Delaney Dwyer Fungal infection of nail B35.1 ; Pain in right toe(s) M79.674 and Tinea pedis of both feet B35.3 Assessments Encounter Date Diagnosis (ICD Code) Assessment Notes Treatment Notes Treatment Clinical Notes Section Notes 08/06/2023 Fungal infection of nail (ICD-10 - B35.1) Rx management (4) 08/06/2023 Pain in right toe(s) (ICD-10 - M79.674) 08/06/2023 Tinea pedis of both feet (ICD-10 - B35.3) Plan Of Treatment Pending Test Test Name Order Date *Liver Function Test (LFT) 08/06/2023 Next Appt Details Follow Up: prn, Reason: Progress Notes * Talisha CR LDOB:1960 (63 yo F)Acc No.[id number]:08/06/2023 Progress Note Patient:?Talisha Cr Provider:?Delaney Dwyer DPM :1960???Age:63 Y???Sex:Female D ate:08/06/2023 Address[address] [place], [place] [address] Pcp:Estefany De La Cruz Subjective: * Chief Complaints: * ???Pt states last pcp visit 11/2022Fungal NailsSkin Problem * HPI: ???Painful Nails:?Nature:?aching, tender, discolored, thick.?Location:?Right foot.?Duration:?1 year or more.?Course:?improved.?Aggrevated by:?shoegear causing difficulty standing/walking.?Treatments:?Topical Antifungal Oral Antifungal Lamisil relates adherence to recom tx denies any adverse side effects to medication.?Skin problems:?Nature:?scaling , redness.?Location:?B/L .?Duration:?several days.?Course:?improved.?Treatments:?Medication (Ciclopirox Olamine 0.77 Cream).? * ROS:?General/Constitutional:?Nausea?denies.?Vomiting?denies.?Hunger Thirst?denies.?Loss appetite?denies.?Chills?denies.?Fatigue?denies.?Fever?denies.?Night Sweats?denies.?Unexplained weight loss?denies.?Unexplained weight gain?denies.?HEENTM:?Dentures?denies.?Dizziness?denies.?Glasses/contacts?admits.?Retinopathy?de nies.?Blurred/double vision?denies.?TMJ?denies.?Discharge/drainage?denies.?Implants?denies.?Sore throat?denies.?Dental implants?denies.?Hard of hearing ?denies.?Difficulty chewing/swallowing/speaking?denies.?Nose bleeds?denies.?Sore mouth?denies.?Respiratory:?On Oxygen?denies.?Pneumonia/pleurisy?denies.?Bronchitis?denies.?Emphysema?denies.?C oughing?denies.?Cough blood?denies.?Shortness of breath?denies.?Wheezing?denies.?Cardiovascular:?Pacemaker?denies.?MVP?denies.?WPW?denies.?CHF?denies.?Heart attack?denies.?Septal defect?denies.?Rapid beat?denies.?Chest pain ?denies.?Atrial Fib.?denies.?Murmur/Palpitations?denies.?Gastrointestinal:?Hemorrhoids?denies.?Stomach/Abdominal pain?denies.?Dark blood stool?denies.?Irritable bowel ?denies.?Constipation?denies.?Diarrhea?denies.?Hematology:?Swelling?denies.?Clots?denies.?Varicose Veins?denies.?Bruising?denies.?Bleeding problem?denies.?Genitourinary:?Blood urine?denies.?Frequent/Painfu/urination/bladder control?denies.?Kidney stones?denies.?Infection (UTI)?denies.?Nephropathy?denies.?sex trans dis (STD)?denies.?Prostate?denies.?Musculoskeletal:?Hammertoes?denies.?Bunions?denies.?Back Pain?denies.?Muscle Cramps/ Resting?denies.?Muscle cramps / walking?denies.?Generalized aches and pains?denies.?Weakness?denies.?Integ.:?Lu?denies.?Scars?denies.?Corns/calluses?denies.?Ingrown nails?denies.?Painful nails?denies.?Open Sores?denies.?Rashes?denies.?Neurologic:?Difficulty sleeping?denies.?Brain disorder?denies.?Numbness?denies.?Balance trouble?denies.?Confusion?denies.?Fainting/blackouts?denies.?Tingling?denies.?Tr emors?denies.? * Medical History:? * Surgical History:?Gall bladd er removal 2004 * Hospitalization/Major Diagno stic Procedure:?Denies Past Hospitalization * Family History:?Mother: dece ased, diagnosed with Diabetic - NIDDM, Other malignant neoplasm of unspecified site.?Father: .? * Social History:?Tobacco Use:?Tobacco Use/Smoking?Are you a:?nonsmoker ?Additional Findings: Tobacco Non-User?Current non-smoker ?Tobacco use other than smoking?Are you an other tobacco user??No ???Drugs/Alcohol:?Drugs?Have you used drugs other than those for medical reasons in the past 12 months??No ?Alcohol Screen?Did you have a drink containing alcohol in the past year??Yes ?How often did you have a drink containing alcohol in the past year??2 to 3 times a week (3 points) ?Points?3 ?Interpretation?Positive ???Miscellaneous:?Caffeine: yes, 1-2 cups per day. ?Children: yes, 1. ?Exercise: yes, hiking, gym, bike riding, writing, row, write. ?Marital status: . 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 * Medications:?TakingCiclopiro x Olamine 0.77 % Cream 1 application Externally Twice a dayLamisil 250mg tablet 1 tablet orally Once dailyMedication List reviewed and reconciled with the patientTaking Ciclopirox Olamine 0.77 % Cream 1 application Externally Twice a dayTaking Lamisil 250mg tablet 1 tablet orally Once dailyMedication List reviewed and reconciled with the patient * Allergies:?Bactrimyes[Allerg ies Verified] Objective: * Vitals:?Ht: 5ft6in, Wt:180, BMI:29.05, Shoe size: 9.5-10, Ht-cm: 167.64 cm, Wt- k.65 kg. * Examination: ???General Examination: ?GENERAL APPEARANCE:?Reveals a pleasant, alert, well-nourished, well- developed, well hydrated individual, who demonstrates proper attention to hygiene/body habitus, and is in no acute distress, Pt serves as own?historian for office visit today.?ORIENTED:?person, place, and time.?Neurological: ?SENSORY:?Neurological exam reveals intact sensorium, pain sensation normal, vibration sensation intact, pinprick sensation is normal in the lower extremities, Pt denies, anesthesia, burning, paresthesia, tingling, B/L.?DEEP TENDON REFLEXES:?Achilles, 2/4, B/L.?Vascular: ?DP PULSES:?3/4, B/L.?PT PULSES:?3/4, B/L.?CAPILLARY FILL TIME:?immediate, all digits, B/L.?SKIN TEMPERTURE GRADIENT OF THE LOWER EXTERMITIES:?warm to cool, proximal to distal, B/L.?HAIR GROWTH/TEXTURE/ELASTICITY/TURGOR:?normal, B/L.?PIGMENTATION:?normal, B/L.?EDEMA:?absent, B/L.?Dermatologic: ?SKIN FINDINGS:?Skin shows approximately _75__% LESS sign(s) of, erythema, scaling, in a moccasin fashion, no fissure(s) present, B/L.?Orthopedic: ?MUSCLE STRENGTH:?5/5 all groups in a symmetrical fashion , B/L.?Nails: ?NAILS are:?Elongated, overgrown, dystrophic, lytic, greater than 3mm thick, discolored and friable with crumbly malodorous subungual debris, with pain on palpation, 1-5 Right foot proximal clearing of nail ___15_ percent.? Assessment: * Assessment: 1.?Pain in right toe(s) - M7 9.674?2.?Fungal infection of nail - B35.1 (Primary), Rx management (4)?3.?Tinea pedis of both feet - B35.3, Acute problem, Uncomplicated (3),Rx drug management (4)? Plan: * Treatment: * Procedure Codes:? * Preventive Medicine:? ??Counseling:?Discussion:?-13: Office or other outpatient visit for the evaluation and management of an established patient, which required a medically appropriate history and/or examination and LOW level of DECISION MAKING for: 1 STABLE ACUTE UNCOMPLICATED PROBLEM, 2 OR MORE MINOR PROBLEMS, OR 1 STABLE CHRONIC PROBLEM, THAT POSE(S) A LOW RISK FOR MORBIDITY/MORTALITY. The visit on the day of the encounter encompassed interpreting the data and educating the patient as to the nature of their condition, treatment options available according to their individual PMH, meds, allergies, and overall health/living conditions, as well as any potential risks or complications that may occur from a failure to adhere to, and participate in, the recommended course of therapy. The discussion included a complete verbal, and/or written explanation of the examination results, any x-rays taken, the proposed diagnosis, and outline of the treatment plan. A schedule for future care needs was also explained. The patient verbalized an understanding of the instructions at this time and agreed to be an active participant in their treatment. If the patient should think of any questions or concerns after the visit, I have encouraged the patient to call the office.?F/U Fungal nails:?Reviewed with the patient the time needed before we start seeing results with the oral Lamisil. Discussed the results that we hope to see and that dillon a topical medication to the nails may also help. We discussed the duration of time that the Lamisil will work on the nails for. We should wait 1 year before we take the Lamisil again., Repeat LFT ordered.?Tinea Pedis:?Given recent successful results to treatment, The patient is to cont the rx cream as directed.? * Follow Up:?prn * Images: * Sign off status: Completed true * Provider:?Delaney Dwyer DPM Date:? Generated for Ken rivas/Boy/Raffiitting on:?03/01/2024 10:05 AM EST History and Physical Notes * HPI (History of Present Illness) Category Sub-Category Detail Notes Category Not es Painful Nails Aggravated by: shoegear causing difficulty standing/walking Course: improved Duration: 1 year or more Location: Right foot Nature: aching, tender, disc olored, thick Treatments: Topical Antifungal O ral Antifungal Lamisil relates adherence to recom tx denies any adverse side effects to medication Skin problems Nature: scaling , redness Location: B/L Duration: several days Course: improved Treatments: Medication (Ciclopir ox Olamine 0.77 Cream) Examination Category Sub-Category Detail Notes Category Not es Neurological SENSORY: Neurological exa m reveals intact sensorium, pain sensation normal, vibration sensation intact, pinprick sensation is normal in the lower extremities, Pt denies, anesthesia, burning, paresthesia, tingling, B/L DEEP TENDON REFLEXES: Achilles, 2/4, B/L Dermatologic SKIN FINDINGS: Skin shows appro ximately _75__% LESS sign(s) of, erythema, scaling, in a moccasin fashion, no fissure(s) present, B/L Orthopedic MUSCLE STRENGTH: 5/5 all groups in a symm etrical fashion , B/L General Examination GENERAL APPEARANCE: Reveals a pleasant, alert, well- nourished, well-developed, well hydrated individual, who demonstrates proper attention to hygiene/body habitus, and is in no acute distress, Pt serves as own historian for office visit today ORIENTED: person, place, and t jv Vascular DP PULSES(B): 3/4, B/L PT PULSES(B): 3/4, B/L CAPILLARY FILL TIME: immediate, all digi ts, B/L TEMPERTURE GRADIENT(C): warm to cool, pr oximal to distal, B/L TROPHIC CONDITION-TEXTURE/ELASTICITY/TURGOR/HAIR GROWTH(B): normal, B/L EDEMA(C): absent, B/L PIGMENTATION: normal, B/L Nails NAILS are: Elongated, overg rown, dystrophic, lytic, greater than 3mm thick, discolored and friable with crumbly malodorous subungual debris, with pain on palpation, 1-5 Right foot proximal clearing of nail ___15_ percent
[2024-03-01 10:10] VITALS: BMI 31.0
--- NOTE | 2024-03-01 10:10 | A.OFFVIS_ITS ---
VS Expanded 03/01/24 10:10 Height 5 ft 6 in Weight 192 lb 2 oz BMI 31.0 Intake Visit Reasons: Obesity/Left vm Allergies Sulfa (Sulfonamide Antibiotics) Allergy (Unknown, Verified 12/03/23 11:49) RASH Nutrition Presentation Details: Pt presents for MNT f/u for obesity Pt reports challenges with weight loss, wants to work on tracking total caloric intake. BS Monitoring Most Recent Diabetes Results: Cholesterol 204 mg/dL (<200) H 12/04/23 HDL Cholesterol 57 mg/dL (>40) 12/04/23 Triglycerides 98 mg/dL (<150) 12/04/23 Creatinine 0.80 mg/dL (0.5-1.4) 12/04/23 Blood Urea Nitrogen 15 mg/dL (9-16) 12/04/23 Sodium 142 mmol/L (135-145) 12/04/23 Potassium 4.5 mmol/L (3.3-5.1) 12/04/23 Chloride 109 mmol/L (96-108) H 12/04/23 Carbon Dioxide 27 mmol/L (22-29) 12/04/23 Calcium 9.4 mg/dL (8.4-10.2) 12/04/23 PFSH Medical History (Updated 12/03/23 @ 12:13 by Marcy Sutton MD) Family history of thyroid disease Vitamin D deficiency Hyperlipidemia Impaired fasting glucose Obesity (BMI 30.0-34.9) Dupuytren's contracture of left hand Immunization declined Arthralgia of knee History of COVID-19 Vertigo Surgical History Hx laparoscopic cholecystectomy Hx of colonoscopy Family History Father Alcoholism Colon polyp Depression Mother Depression History of breast cancer Diabetes mellitus Social History Housing: House Patient Tobacco Use Status: Former Tobacco user Years Smoked: 3 months e-Cigarette/Vaping Use: Former Use service: No Current occupational status: retired Cognitive needs: No Hearing needs: No Vision needs: Yes Assessment & Plan Assessment & Plan (1) Hyperlipidemia: Code(s): E78.5 - Hyperlipidemia, unspecified Category: Medical Plan: Wt: 87 Kg ( 01/07 ), 02/07 Est kcal needs as per MSJ: 1999 - calories =1500 (40% carb, 30% protein/fat) Est fluid needs as per 25-30 ml/d: 2600 Est prot per day as per 1 g/kg bw: 87 Recommend fiber intake : 8-10 g per day and gradually increase to 25-28 g per day for women and 35-38 g for men or as tolerated Recommend sodium intake per day : less than 2300 mg Educated patient on: ( R = reviewed V = verbalizes understanding N/R = needs review N/A = not applicable * Food sources of carbohydrate, adequate serving sizes and its role in various health conditions: R V N/R * Differences between complex carbohydrates a simple carbohydrates, role of fiber in diet: R * Lean protein sources of foods: R V NR * Differences between types of fats and role in diet (mono on saturated fat fatty acids, saturated fatty acids, trans fats): R * Food sources of sodium in salt and healthy modifications for heart health in kidney health: R V R/V * Vitamins and minerals: R V N/R * Healthy plate method concept: R * Physical activity: Benefits a precaution: R Plan 2600 fluids Patient Instructions: Work on reducing total caloric intake to 1500 /day (choose high fiber foods such as vegetables, fruits, whole grains ) Measure food portion sizes , keep track of your total calories, use phone nilson [place] Coding Level of Care Code Nutr Indiv Subseq (57024) Diagnoses Hyperlipidemia E78.5 Time Spent (min) 30
== END 2024-03-01 10:39 | disposition home or self-care (01) ==
PROVIDERS: PCP Internal Medicine; Visit Provider Dietitian, Registered
DX: E78.5 Hyperlipidemia, unspecified (principal)

== ENCOUNTER → 2024-03-01 10:03 | Outpatient (BNVA) | payer MEDICARE, SELFPAY | PROVIDERS: PCP Internal Medicine; Visit Provider Dietitian, Registered | DX: E66.9 Obesity, unspecified (principal); E78.5 Hyperlipidemia, unspecified; Z71.3 Dietary counseling and surveillance; Z68.31 Body mass index [BMI] 31.0-31.9, adult | CPT/HCPCS: 97803 ==

== ENCOUNTER 2024-04-19 12:54 | Outpatient (AMB) | payer MEDICARE, SELFPAY ==
--- NOTE | 2024-04-19 12:56 | A.OFFVIS_ITS ---
VS Expanded 04/19/24 13:00 Height 5 ft 6 in Weight 196 lb 13.965 oz BMI 31.8 Intake Visit Reasons: hyperlipidemia, obesity/Left Vm Allergies Sulfa (Sulfonamide Antibiotics) Allergy (Unknown, Verified 12/03/23 11:49) RASH Nutrition Presentation Details: Pt presents for MNT f/u for hyperlipidemia/obesity Pt reports fluctuation in dietary patterns, between low fat/high fiber and then switching to high fat/ow fiber foods Reports increased appetite in the evenings not keeping track of calories (has tried different methods in the past including wt watchers) Physical activity - skiing once/wk + daily life activities BS Monitoring Most Recent Diabetes Results: No Data to Display [facility] Medical History (Updated 12/03/23 @ 12:13 by Marcy Sutton MD) Family history of thyroid disease Vitamin D deficiency Hyperlipidemia Impaired fasting glucose Obesity (BMI 30.0-34.9) Dupuytren's contracture of left hand Immunization declined Arthralgia of knee History of COVID-19 Vertigo Surgical History Hx laparoscopic cholecystectomy Hx of colonoscopy Family History Father Alcoholism Colon polyp Depression Mother Depression History of breast cancer Diabetes mellitus Social History Housing: House Patient Tobacco Use Status: Former Tobacco user Years Smoked: 3 months e-Cigarette/Vaping Use: Former Use service: No Current occupational status: retired Cognitive needs: No Hearing needs: No Vision needs: Yes Assessment & Plan Assessment & Plan (1) Hyperlipidemia: Code(s): E78.5 - Hyperlipidemia, unspecified Category: Medical Plan: Wt: 87 Kg ( 01/07 ), 02/07 Est kcal needs as per MSJ: 2000 -500 calories =1500 (40% carb, 30% protein/fat) Est fluid needs as per 25-30 ml/d: 2600 Est prot per day as per 1 g/kg bw: 87 Recommend fiber intake : 8-10 g per day and gradually increase to 25-28 g per day for women and 35-38 g for men or as tolerated Recommend sodium intake per day : less than 2300 mg Educated patient on: ( R = reviewed V = verbalizes understanding N/R = needs review N/A = not applicable * Food sources of carbohydrate, adequate serving sizes and its role in various health conditions: R V N/R * Differences between complex carbohydrates a simple carbohydrates, role of fiber in diet: R * Lean protein sources of foods: R V NR * Differences between types of fats and role in diet (mono on saturated fat fatty acids, saturated fatty acids, trans fats): R * Food sources of sodium in salt and healthy modifications for heart health in kidney health: R V R/V * Vitamins and minerals: R V N/R * Healthy plate method concept: R * Physical activity: Benefits a precaution: R Plan 2600 fluids Patient Instructions: Include fiber rich foods in your diet ( choose fruits, salad, try 1 g glucommanan fiber supplement once a day awith 8 oz of water and gradually increase to 3 a day Keep hydrated as you increase in fiber intake to prevent constipation continue to practice mindful eating, reducing on high fat foods Continue to keep physically active daily - walk 30 minutes daily Coding Level of Care Code Nutr Indiv Subseq (18719) Diagnoses Hyperlipidemia E78.5 Time Spent (min) 30
[2024-04-19 13:00] VITALS: BMI 31.8
--- OUTSIDE RECORDS SUMMARY | 2024-04-19 14:14 | XMS_ITS | Clinical Summary ---
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 Name Role Phone Unavailable Primary Care Provider Unavailabl e Social History Tobacco Use Types Packs/Day Years Used Date Smoking Tobacco: Never Assessed Comments Unknown Sex and Gender Information Value Date Recorded Sex Assigned at Not on file Legal Sex Female 11:57 AM EST Gender Identity Not on file Sexual Orientation Not on file Plan of Treatment Health Maintenance Due Date Last Done Comments Colorectal Cancer: COLONOSCO PY Screening every 10 yrs (or Modifier) 1959 Depression: Screening Annual ly using PHQ-2/9 in Adults 18 yrs or above (or HM Modifier)([facility]) 1977 Hepatitis C Virus Infection in Adolescents and Adults: Screening (or Modifier) ([facility]) 1977 SDDC Screening Reminder: Caroline parnell for all adults ([facility]) 1977 Tobacco Smoking Cessation: i n Adults excluding Women: Behavioral and Pharmacotherapy Interventions ([facility]) 1977 DTaP/Tdap/Td Vaccines ([facility]) (1 - Tdap) 1978 Cervical Cancer Screenin 1-65 yrs of age (or Modifier) 01/24/1980 Cervical Cancer Screening: P ap every 3 yrs pts age 21-65 01/24/1980 Cervical Cancer: Pap Screeni ng with Modifier timing ([facility]) 01/24/1980 Cervical Cancer: hrHPV alone or with cotesting Pap for Pts 30-65yrs screening every 5yrs ([facility]) 01/24/1980 Colorectal Cancer Screening 45 -75 Yrs (or HM Modifier ) 01/24/2004 Colorectal Cancer: FLEXIBLE SIGMOIDOSCOPY Screening every 5 yrs 01/24/2004 Colorectal Cancer: Fecal Imm unochemical Test (FIT) Annually [facility] 01/24/2004 Colorectal Cancer: High-sens itivity gFOBT Screening Annually [facility] 01/24/2004 Colorectal Cancer: Stool Col oguard Screening every 3 yrs 01/24/2004 Colorectal Cancer:CT Colonography Screening every 5 yr s 01/24/2004 Lipid Screening: Every 5 yrs for Women aged 45+ (or HM Modifier) ([facility]) 2005 Breast Cancer: Screening Caroline ually age 50-74 yrs (or HM Modifier)([facility]) 2009 Zoster/Shingles Vaccine Seri es Screening: Adults aged 18+ yrs (or HM Modifiers)([facility]) (1 of 2) 2009 COVID-19 Vaccine Screening: Initial Series and Booster Status ([facility]) ( - 2023- season) 2023 Flu Vaccination: Ages 65+: Y early High Dose Recommended (or Modifier)([facility]) 01/24/2024 Osteoporosis Screening to Pr event Fractures: Women aged 65 years+ ([facility]) 01/24/2024 Pneumococcal Vaccination Scr eening: Patients 65+ yrs of age ([facility]) (1 of 1 - PCV) 01/24/2024 RSV Vaccines (1 - 1-dose 75+ series) 2034 [employer] Not on file Insurance
== END 2024-04-19 13:34 | disposition home or self-care (01) ==
PROVIDERS: PCP Internal Medicine; Visit Provider Dietitian, Registered
DX: E78.5 Hyperlipidemia, unspecified (principal)

== ENCOUNTER → 2024-04-19 12:54 | Outpatient (BNVA) | payer MEDICARE, SELFPAY | PROVIDERS: PCP Internal Medicine; Visit Provider Dietitian, Registered | DX: E78.5 Hyperlipidemia, unspecified (principal) | CPT/HCPCS: 97803 ==

== ENCOUNTER 2024-07-19 12:56 | Outpatient (AMB) | payer MEDICARE, SELFPAY ==
[2024-07-19 13:05] VITALS: BMI 32.4
--- NOTE | 2024-07-19 13:05 | A.OFFVIS_ITS ---
VS Expanded 07/19/24 13:05 Height 5 ft 6 in Weight 201 lb 0.985 oz BMI 32.4 Intake Visit Reasons: obesity Allergies Sulfa (Sulfonamide Antibiotics) Allergy (Unknown, Verified 12/03/23 11:49) RASH Nutrition Presentation Details: Pt presents for MNT f/u for obesity Pt reports working on counting calories , aiming at 2000 per day finds increased appetite after exercises choosing >300 calorie , reports choosing low fat foods alternating between salads with light dressings and fruit or having pasta salad with tomatoes Acknowledges increased appetite and caloric intake when bored /emotional eating. Pt reports following up with a mental health care provider Pt reports having tried glucomannan as fiber supplement in the past 2 months with no changes in symptoms of fullness and reports noticing increased sudden bowel movement feeling uncomfortable. Pt was advised to discontinue fiber supplement and work on increasing fiber from foods, fiber rich foods low in calories was reviewed and Pt verbalized understanding these. Physical activity : rowing 1 hr twice a week, walking 1 hour 2 x/wk Pt has questions regarding medication management for weight loss. Pt was advised to discuss medication management for weight loss with primary care provider for further assessment BS Monitoring Most Recent Diabetes Results: No Data to Display [facility] Medical History (Updated 12/03/23 @ 12:13 by Marcy Sutton MD) Family history of thyroid disease Vitamin D deficiency Hyperlipidemia Impaired fasting glucose Obesity (BMI 30.0-34.9) Dupuytren's contracture of left hand Immunization declined Arthralgia of knee History of COVID-19 Vertigo Surgical History Hx laparoscopic cholecystectomy Hx of colonoscopy Family History Father Alcoholism Colon polyp Depression Mother Depression History of breast cancer Diabetes mellitus Social History Housing: House Patient Tobacco Use Status: Former Tobacco user Years Smoked: 3 months e-Cigarette/Vaping Use: Former Use service: No Current occupational status: retired Cognitive needs: No Hearing needs: No Vision needs: Yes Assessment & Plan Assessment & Plan (1) Hyperlipidemia: Code(s): E78.5 - Hyperlipidemia, unspecified Category: Medical Plan: PT having challenges reducing total caloric intake related to increased appeti te. Pt may benefit from medication management and was advised to discuss this with primary care provider In the meantime Pt was highly encouraged to practice mindful eating choosing high fiber foods /low in fats and continue physical activity Wt: 87 Kg ( 01/07 ), 02/07, 91 kg (08/08) Est kcal needs as per MSJ: 2000 -500 calories for weight loss (40% carb, 30% protein/fat) Est fluid needs as per 25-30 ml/d: 2600 (at least 10 cups of fluids/day from water/fruit/herb infused water, low sugar/low carb/decaf fluids/low sodium soups, milk, keep in mind that vegetables/ and fruits have water as well ) Est prot per day as per 1 g/kg bw: 87 Recommend fiber intake : 8-10 g per day and gradually increase to 25-28 g per day for women and 35-38 g for men or as tolerated Recommend sodium intake per day : less than 2300 mg Educated patient on: ( R = reviewed V = verbalizes understanding N/R = needs review N/A = not applicable * Food sources of carbohydrate, adequate serving sizes and its role in various health conditions: R V N/R * Differences between complex carbohydrates a simple carbohydrates, role of fiber in diet: R * Lean protein sources of foods: R V NR * Differences between types of fats and role in diet (mono on saturated fat fatty acids, saturated fatty acids, trans fats): R * Food sources of sodium in salt and healthy modifications for heart health in kidney health: R * Vitamins and minerals: R V N/R * Healthy plate method concept: R * Physical activity: Benefits a precaution: R Discussed : consistency in total caloric intake : consistency in 2000 calories intake Choose high fiber low calorie options as snack to maintain 2000 calorie target Discussed sensitivity with weight gain with fatty starches (fries/nuggets/ice cream/pastries and similar foods) Discussed maintaining good hydration : water/water infused with herb/fruit flavors which also help reduce appetite Discussed strategies to prevent increasing calories after exercise: example have a fruit before exercise routine and have the meal after the exercise (versus having higher calorie intake before the exercise and still having increased appetite after the exercise) Patient Instructions: Keep consistent in total caloric intake choosing fiber rich foods low in fat Discuss medication management with your primary care provider Coding Level of Care Code Nutr Indiv Subseq (97225) Diagnoses Hyperlipidemia E78.5 Time Spent (min) 30
--- OUTSIDE RECORDS SUMMARY | 2024-07-19 14:18 | XMS_ITS ---
Author Organization [facility] Address [address] [place] [address] Care Team Providers Care Hairspring Inspector Name Role Phone Herman LARSON, Marcy Paige Primary Care Provider Un available Delaney Dwyer Unavailable [phone] Allergies Allergen (clinical drug ingredient) Drug/Non Drug [...] 08/06/2023 Encounters Encounter Location Date Provider Diagnosis [facility] [address] [place] [address] 08/06/2023 Delaney Dwyer Fungal infection of nail [...] * Talisha CR LDOB:1960 (63 yo F)Acc No.[id number]:08/06/2023 Progress Note Patient:?Talisha Cr Provider:?Delaney Dwyer DPM :1960???Age:63 Y???Sex:Female D ate:08/06/2023 Address:[address] [place], [place] [address] Pcp:Estefany De La Cruz Subjective: * Chief [...] Provider:?Delaney Dwyer DPM Date:? Generated for Ken rivas/Boy/Jayce on:?07/19/2024 02:17 PM EDT History and Physical Notes * HPI (History [...] person, place, and t jv Vascular DP PULSES (B): 3/4, B/L PT PULSES (B): 3/4, B/L CAPILLARY FILL TIME: immediate, all digi ts, B/L TEMPERTURE GRADIENT (C): warm to cool, p roximal to distal, B/L TROPHIC CONDITION-TEXTURE/ELASTICITY/TURGOR/HAIR GROWTH (B): normal, B/L EDEMA (C): absent, B/L PIGMENTATION: normal, B/L Nails NAILS are: Elongated, overg rown, dystrophic, lytic, greater than 3mm thick, discolored and friable with crumbly malodorous subungual debris, with pain on palpation, 1-5 Right foot proximal clearing of nail ___15_ percent
--- OUTSIDE RECORDS SUMMARY | 2024-07-19 14:18 | XMS_ITS | Patient Health Record ---
Author Organization [facility] Address [address] [place] [address] Care Team Providers Care Food Processing Scientist Name Role Phone Herman LARSON, Marcy Paige Primary Care Provider Un available Delaney Dwyer Unavailable [phone] Allergies Allergen (clinical drug ingredient) Drug/Non Drug [...] 08/06/2023 Encounters Encounter Location Date Provider Diagnosis [facility] [address] [place] [address] 08/06/2023 Delaney Dwyer Fungal infection of nail B35.1 ; Pain in right toe(s) M79.674 and Tinea pedis of both feet B35.3 [facility] [address] [place] [address] 08/07/2023 Delaney Dwyer Assessments Encounter Date Diagnosis (ICD Code) Assessment Notes Treatment Notes Treatment Clinical Notes Section Notes 08/06/2023 Pain in right toe(s) (ICD-10 - [...] Insured Coverage Start Date Coverage End Date [facility] [address] [facility] [place] [id number] Talisha Peralta Self - patient is the insured Medical (General) History Medical History History ICD Code Gall bladder problems Surgical History Surgery Date(Month/Year) Gall bladder removal 2004
--- OUTSIDE RECORDS SUMMARY | 2024-07-19 14:19 | XMS_ITS ---
Author Organization [facility] Address [address] [place] [address] Care Team Providers Care Grounds Supervisor Name Role Phone Herman LARSON, Marcy Paige Primary Care Provider Un available ChaseDelaney cedillo Unavailable [phone] Sandy Duff Unavailable [phone] Allergies Allergen (clinical drug ingredient) Drug/Non Drug [...] 07/07/2023 Encounters Encounter Location Date Provider Diagnosis [facility] [address] [place] [address] 07/07/2023 Sandy Duff Plan Of Treatment No Information Progress Notes * KATHRYNAn GUALLPAan LDOB:1960 (64 yo F)Acc No.[id number]:07/07/2023 Progress Notes Patient:?KATHRYNTalisha Rylie Provider:?Sandy Duff DPM :1960???Age:63 Y???Sex:Female D ate:07/07/2023 Address: [address] [id number] Pcp:Estefany De La Cruz Subjective: * Chief [...] Provider:?Sandy Duff DPM Date:?2023 Generated for Ken rivas/Boy/Jayce on:?07/19/2024 02:18 PM EDT
--- OUTSIDE RECORDS SUMMARY | 2024-07-19 14:19 | XMS_ITS ---
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 Generated for Printi ng/Fajoseg/eTransmitting on:?07/19/2024 02:18 PM EDT
== END 2024-07-19 21:49 | disposition home or self-care (01) ==
LOC: HO.ENCR 12:56
PROVIDERS: PCP Internal Medicine; Visit Provider Dietitian, Registered
DX: E78.5 Hyperlipidemia, unspecified (principal)

== ENCOUNTER → 2024-07-19 12:56 | Outpatient (BNVA) | payer MEDICARE, SELFPAY | PROVIDERS: PCP Internal Medicine; Visit Provider Dietitian, Registered | DX: E66.9 Obesity, unspecified (principal); E78.5 Hyperlipidemia, unspecified; Z68.32 Body mass index [BMI] 32.0-32.9, adult | CPT/HCPCS: 97803 ==

== ENCOUNTER 2024-09-23 10:40 | Outpatient (AMB) | payer MEDICARE, SELFPAY ==
[2024-09-23 10:41] VITALS: BP 132/71; PULSE 74; TEMP 36.7; O2SAT 98; BMI 32.6
--- NOTE | 2024-09-23 10:41 | AM.OFFWIN_ITS ---
Intake Vital Signs 09/23/24 10:41 Height 5 ft 6 in Weight 202 lb 2 oz BMI 32.6 BP 132/71 Blood Pressure Location Lt brachial Position Sitting Pulse 74 Pulse Source Pulse Oximeter Temp 98.1 F Temp Source Oral Pulse Oximetry (%) 98 Oxygen Delivery Method Room Air Intake Visit Reasons: EP Swelling under RT eye Intake Note: Patient presents with left eye swelling times 1 day. 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 Pt reports noticing the swelling yesterday morning and increased since yesterday. [place] - reports getting some of the water splushed into her face and eyes. Denies Vision changes and denies Eye pain, but dows have some mild tenderness around the Orbital region. [facility] Medical History (Updated 09/23/24 @ 10:56 by Betzaida Patel NP) Periorbital swelling Family history of thyroid disease Vitamin D deficiency Hyperlipidemia Impaired fasting glucose Obesity (BMI 30.0-34.9) Dupuytren's contracture of left hand Immunization declined Arthralgia of knee History of COVID-19 Vertigo Surgical History Hx laparoscopic cholecystectomy Hx of colonoscopy Family History Father Alcoholism Colon polyp Depression Mother Depression History of breast cancer Diabetes mellitus Social History Housing: House Patient Tobacco Use Status: Former Tobacco user Years Smoked: 3 months e-Cigarette/Vaping Use: Former Use service: No Current occupational status: retired Cognitive needs: No Hearing needs: No Vision needs: Yes Review of Systems Const All systems reviewed & are unremarkable except as noted in HPI and below Physical Exam Vital Signs: Last Vital Signs Temp 98.1 F 09/23/24 10:41 Pulse 74 09/23/24 10:41 BP 132/71 09/23/24 10:41 Pulse Ox 98 09/23/24 10:41 Oxygen Delivery Method Room Air 09/23/24 10:41 BMI result Body Mass Index 32.6 Const General: comfortable and no acute distress Nutritional Appearance: obese Orientation/consciousness: patient oriented x3 HEENT Head: Yes normocephalic Ears: external ears normal and TM abnormal with fluid behind the TM bilateral General nose exam: Abnormal mucous membranes and turbinates present boggy Face and sinus: Yes sinuses nontender Mouth: moist mucous membranes Throat: Yes uvula midline Eyes Periorbital: periorbital findings abnormal left periorbital swelling, periorbital tenderness and periorbital erythema; no ecchymosis and no crepitus Eyelids: Yes eyelid abnormality (Lower eyelid swelling) Conjunctivae: conjunctivae normal Corneas: corneas normal Pupils: Equal, round and reactive pupils present EOM: EOMs intact bilaterally Resp Effort & Inspection: normal respiratory effort and able to speak in complete sentences Auscultation: clear to auscultation bilaterally, no crackles, no rales, no rhonchi and no wheezes Cardio Heart sounds: S1 normal heart sound present and S2 normal heart sound present Neuro General: patient oriented x3 Cranial nerves: Yes Equal, round and reactive pupils present Assessment & Plan Assessment & Plan (1) Periorbital swelling: Code(s): H57.89 - Other specified disorders of eye and adnexa Plan: Discussed Red flag symptoms and when to call 911 or go to ED Ordered Cipro Eye ointment Apply Warm compress to the eye Acetaminophen for pain relief. Medications: New ciprofloxacin HCl 0.3% apply 1/2 inch ribbon into affected eye(s) 3 times daily for 2 days; then twice daily for 5 days ophthalmic (eye) 3.5 grams 0RF H57.89 - Other specified disorders of eye and adnexa Coding Level of Care Code Est Pt Level 4 (31005) Diagnoses Periorbital swelling H57.89 Time Spent (min) 20
--- OUTSIDE RECORDS SUMMARY | 2024-09-23 11:20 | XMS_ITS | Patient Health Record ---
Author Organization [facility] [place] Address [address] [place] [address] Care Team Providers Care Maintenance Leader Name Role Phone Herman LARSON, Marcy Paige Primary Care Provider Un available Delaney Dwyer Unavailable [phone] Allergies Allergen (clinical drug ingredient) Drug/Non Drug Allergy documented on EMR Reaction Allergy Type Onset Date Status sulfamethoxazole / trimethoprim Bactrim Unknown Drug Allergy Active Reason For Referral No Information Medications Medication SIG (Take, Route, Frequency, Duration) Notes Start Date End Date Status Ciclopirox Olamine 0.77 % 1 application Externally Twice a day; Duration: 30 days Active Lamisil 250mg 1 tablet orally Once daily; Duration: 30 days Active Social History Tobacco Use: [...] Are you an other tobacco user? No Plan Of Treatment Pending Test Test Name Order Date *Liver Function Test (LFT) 05/26/2023 *Liver Function Test (LFT) 08/06/2023 Insurance Providers Payer Name Payer Address Payer Phone Subscriber Number Group Number Insured Name Patient Relationship to Insured Coverage Start Date Coverage End Date [facility] [address] [place] [address] [id number] Talisha Peralta Self - patient is the insured Medical (General) History Medical History History ICD Code Gall bladder problems Surgical History Surgery Date(Month/Year) Gall bladder removal 2004
== END 2024-09-23 11:13 | disposition home or self-care (01) ==
PROVIDERS: PCP Internal Medicine; Visit Provider Nurse Practitioner Family
DX: H57.89 Other specified disorders of eye and adnexa (principal)

== ENCOUNTER → 2024-09-23 10:40 | Outpatient (BNVA) | payer MEDICARE, SELFPAY | PROVIDERS: PCP Internal Medicine; Visit Provider Nurse Practitioner Family | DX: H57.89 Other specified disorders of eye and adnexa (principal) | CPT/HCPCS: 99212 ==

== ENCOUNTER 2024-12-16 11:29 | Outpatient (REF) | payer MEDICARE, SELFPAY ==
--- NOTE | ~2024-12-16 | XR_ITS ---
EXAMINATION: XR KNEE, RIGHT CLINICAL INFORMATION: M25.561 - Pain in right knee COMPARISON: 08/20/2016. TECHNIQUE: Two views of the right knee. FINDINGS: No fracture or joint effusion. Alignment is anatomic. Joint spaces are maintained. No abnormal soft tissue calcification. XR/XR knee RT 2V IMPRESSION: Normal right knee. Electronically signed by: Marcus Lees MD 12/16/2024 01:39 PM EDT
== END 2024-12-16 11:30 | disposition home or self-care (01) ==
LOC: HO.HMGCX 11:29
PROVIDERS: PCP Internal Medicine; Visit Provider Internal Medicine
DX: Z00.01 Encounter for general adult medical examination with abnormal findings (principal); E78.5 Hyperlipidemia, unspecified; R73.01 Impaired fasting glucose; E55.9 Vitamin D deficiency, unspecified; M25.561 Pain in right knee; M24.849 Other specific joint derangements of unspecified hand, not elsewhere classified; M67.9 Unspecified disorder of synovium and tendon; E66.9 Obesity, unspecified; Z68.33 Body mass index [BMI] 33.0-33.9, adult; Z71.3 Dietary counseling and surveillance
CPT/HCPCS: 73560; 96127; 99212

== ENCOUNTER 2024-12-16 11:29 | Outpatient (AMB) | payer MEDICARE, SELFPAY ==
--- OUTSIDE RECORDS SUMMARY | 2023-07-07 05:30 | XMS_ITS ---
Author Organization [facility] Address [address] [place] [address] Care Team Providers Care Sales Support Associate Name Role Phone Herman LARSON, Marcy Paige Primary Care Provider Un available ChaseDelaney cedillo Unavailable [phone] Black, Sandy Unavailable [phone] Allergies Allergen (clinical drug ingredient) Drug/Non Drug [...] 07/07/2023 Encounters Encounter Location Date Provider Diagnosis [facility] [address] [place] [address] 07/07/2023 Sandy Omega Plan Of Treatment No Information Progress Notes * KATHRYNTalisha GUALLPA LDOB:1960 (64 yo F)Acc No.[id number]:07/07/2023 Progress Notes Patient: Tailsha MOREAU Rylie Provider: Carmela Duff DPM :1960 A ge:63 Y S ex:Female Date:07/07/2023 Address: [address], [id number] Pcp:Estefany De La Cruz Subjective: * Chief [...] enies. C ardiovascular: Pacemaker d enies. M CYBER ENGINEER d enies. W PW d enies. C [...] 07/07/2023 Generated for Ken rivas/Boy/Jayce on: 1 01:21 PM EDT
[2024-12-16 12:00] VITALS: BP 132/88; PULSE 71; RESP 16; TEMP 36.7; O2SAT 98; BMI 33.1
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
--- OUTSIDE RECORDS SUMMARY | 2024-12-16 13:22 | XMS_ITS | Patient Health Record ---
Author Organization [facility] Peyton willie [place] Address [address] [place] [address] Care Team Providers Care Disability Insurance Claim Examiner Name Role Phone Herman LARSON, Marcy Paige Primary Care Provider Un available Delaney Dwyer Unavailable [phone] Allergies Allergen (clinical drug ingredient) Drug/Non Drug [...] Insured Coverage Start Date Coverage End Date [facility] [address] [place] [address] [id number] Talisha Peralta Self - patient is the insured Medical (General) History Medical History History ICD Code Gall bladder problems Surgical History Surgery Date(Month/Year) Gall bladder removal 2004
== END 2024-12-16 13:31 | disposition home or self-care (01) ==
PROVIDERS: PCP Internal Medicine; Visit Provider Internal Medicine
DX: M25.561 Pain in right knee (principal); E78.5 Hyperlipidemia, unspecified; E66.9 Obesity, unspecified; Z68.33 Body mass index [BMI] 33.0-33.9, adult; R73.01 Impaired fasting glucose; M67.942 Unspecified disorder of synovium and tendon, left hand; E55.9 Vitamin D deficiency, unspecified; M24.849 Other specific joint derangements of unspecified hand, not elsewhere classified

== ENCOUNTER → 2024-12-16 13:01 | Outpatient (BNV) | payer MEDICARE, SELFPAY | PROVIDERS: PCP Internal Medicine; Visit Provider Radiology Diagnostic Radiology | DX: M25.561 Pain in right knee (principal) | CPT/HCPCS: 73560 ==

== ENCOUNTER 2024-12-20 09:21 | Outpatient (REF) | payer MEDICARE, SELFPAY ==
--- OUTSIDE RECORDS SUMMARY | 2023-07-07 05:30 | XMS_ITS ---
Author Organization [facility] Address [address] [place] [address] Care Team Providers Care Jar Capper Name Role Phone Herman LARSON, Marcy Paige Primary Care Provider Un available ChaseDelaney cedillo Unavailable [phone] Black, Sandy Unavailable [phone] Allergies Allergen (clinical drug ingredient) Drug/Non Drug [...] 07/07/2023 Encounters Encounter Location Date Provider Diagnosis [facility] [address] [place] [address] 07/07/2023 Sandy Omega Plan Of Treatment No Information Progress Notes * KATHRYNTalisha GUALLPA LDOB:1960 (64 yo F)Acc No.[id number]:07/07/2023 Progress Notes Patient: Talisha MOREAU Rylie Provider: Carmela Duff DPM :1960 A ge:63 Y S ex:Female Date:07/07/2023 Address: [address], [id number] Pcp:Estefany De La Cruz Subjective: * Chief [...] enies. C ardiovascular: Pacemaker d enies. M APARTMENT LEASING AGENT d enies. W PW d enies. C [...] 07/07/2023 Generated for Ken rivas/Boy/Jayce on: 1 10:33 AM EDT
--- OUTSIDE RECORDS SUMMARY | 2024-12-20 10:33 | XMS_ITS | Patient Health Record ---
Author Organization [facility] [place] Address [address] [place] [address] Care Team Providers Care Business Line Manager Name Role Phone Herman LARSON, Marcy Paige Primary Care Provider Un available Delaney Dwyer Unavailable [phone] Allergies Allergen (clinical drug ingredient) Drug/Non Drug [...] Insured Coverage Start Date Coverage End Date [facility] [address] [place] [address] [id number] Talisha Peralta Self - patient is the insured Medical (General) History Medical History History ICD Code Gall bladder problems Surgical History Surgery Date(Month/Year) Gall bladder removal 2004
== END 2024-12-20 09:22 | disposition home or self-care (01) ==
LOC: HO.MAMMO 09:21
PROVIDERS: PCP Internal Medicine; Visit Provider Internal Medicine
DX: Z12.31 Encounter for screening mammogram for malignant neoplasm of breast (principal)
CPT/HCPCS: 77063; 77067

== ENCOUNTER → 2024-12-20 09:30 | Outpatient (BNV) | payer MEDICARE, SELFPAY | PROVIDERS: PCP Internal Medicine; Visit Provider Internal Medicine | DX: Z12.31 Encounter for screening mammogram for malignant neoplasm of breast (principal) | CPT/HCPCS: 77063; 77067 ==

== ENCOUNTER 2024-12-29 07:13 | Outpatient (REF) | payer MEDICARE, SELFPAY ==
--- OUTSIDE RECORDS SUMMARY | 2023-07-07 05:30 | XMS_ITS ---
[facility] Address [address] [place] [address] Care Team Providers Care Assistant Professor In Family Studies Name Role Phone Herman LARSON, Marcy Paige Primary Care Provider Un available ChaseDelaney cedillo Unavailable [phone] Black, Sandy Unavailable [phone] Allergies Allergen (clinical drug ingredient) Drug/Non Drug Allergy documented on EMR Reaction Allergy Type Onset Date Status sulfamethoxazole / trimethoprim Bactrim Unknown Drug Allergy Active REASON FOR VISIT Seen Sooner Social History Tobacco Use: Social History Observation Description Date Details (start date - stop date) Never Smoker NA - NA Tobacco Use/Smoking Question Answer Notes Are you a: nonsmoker Additional Findings: Tobacco Non-User Current no n-smoker Alcohol Screen Question Answer Notes Did you have a drink containing alcohol in the p ast year? Yes Points 0 Interpretation Negative Tobacco use other than smoking: Question Answer Notes Are you an other tobacco user? No Vital Signs Height 5 ft 6 in in 07/07/2023 Weight 175 lbs 07/07/2023 BMI 28.24 kg/m2 07/07/2023 Encounters Encounter Location Date Provider Diagnosis [facility] [address] [place] [address] 07/07/2023 Sandy Omega Plan Of Treatment No Information Progress Notes * KATHRYNTalisha ROMO LDOB:1960 (64 yo F)Acc No.[id number]:07/07/2023 Progress Notes Patient: Talisha MOREAU Rylie Provider: Carmela Duff DPM :1960 A ge:63 Y S ex:Female Date:07/07/2023 Address: [address], [id number] Pcp:Estefany De La Cruz Subjective: * Chief Complaints: * 1 . Seen Sooner. * ROS: G eneral/Constitutional: Nausea d enies. V omiting d enies. H gavin Thirst d enies. L oss appetite d enies. C hills d enies. F atigue d enies.?Fever d enies. N ight Sweats d enies. U nexplained weight loss d enies. U nexplained weight gain d enies. H EENTM: Dentures d enies. D izziness d enies. G lasses/contacts a dmits. R etinopathy d enies. B lurred/double vision d enies. T MJ?denies. D ischarge/drainage d enies. I mplants d enies. S ore throat d enies. D ental implants d enies. H collin of hearing d enies. D ifficulty chewing/swallowing/speaking d enies. N ose bleeds d enies. S ore mouth d enies. ? R espiratory: On Oxygen d enies. P neumonia/pleurisy d enies.?Bronchitis d enies. E mphysema d enies. C oughing d enies. C ough blood?denies. S hortness of breath d enies. W heezing d enies. C ardiovascular: Pacemaker d enies. M CHIMNEY SWEEPER d enies. W PW d enies. C HF d enies. H eart attack d enies. S eptal defect d enies. R apid beat d enies. C hest pain d enies. A trial Fib. d enies. M urmur/Palpitations d enies. G astrointestinal: Hemorrhoids d enies. S tomach/Abdominal pain d enies. D ark blood stool d enies. I rritable bowel d enies. C onstipation d enies. D iarrhea d enies. H ematology: Swelling d enies. C lots d enies. V aricose Veins d enies. B ruising d enies. B leeding problem d enies. G enitourinary: Blood urine d enies. F requent/Painfu/urination/bladder control d enies. K idney stones d enies. I nfection (UTI) d enies. N ephropathy d enies. s ex trans dis (STD) d enies. P rostate d enies. M usculoskeletal: Hammertoes d enies. B unions d enies. B ack Pain d enies. M uscle Cramps/ Resting d enies. M uscle cramps / walking d enies.?Generalized aches and pains d enies. W eakness d enies. I nteg.: Lu d enies. S cars d enies. C orns/calluses?denies. I ngrown nails d enies. P ainful nails d enies. O pen Sores d enies. R ashes d enies. N eurologic: Difficulty sleeping d enies. B rain disorder d enies. N umbness d enies. B alance trouble d enies. C onfusion d enies. F ainting/blackouts d enies. T ingling d enies. T remors d enies. * Medical History: G all bladder problems. * Surgical History: G all bladder removal 2004. * Family History: M other: , diagnosed with Diabetic - NIDDM, Other malignant neoplasm of unspecified site. F ather: . * Social History: T obacco Use: T obacco Use/Smoking A re you a: n onsmoker A dditional Findings: Tobacco Non-User C urrent non-smoker Tobacco use other than smoking A re you an other tobacco user? N o D rugs/Alcohol: D rugs H ave you used drugs other than those for medical reasons in the past 12 months? Y es Alcohol Screen D id you have a drink containing alcohol in the past year? Y es P oints 0 I nterpretation N egative M iscellaneous: C affeine: yes. Children: yes, 1. Exercise: yes, hiking, gym, bike riding, writing, row, write. Marital status: . * Allergies: B actrim. Objective: * Vitals: H t: 5 ft 6 in, Wt:175, BMI:28.24, Shoe size: 9.5-10, Ht-cm: 167.64 cm, Wt-k.38 kg. Assessment: Plan: * Treatment: * Images: * The named appointment provid er may or may not be the originator of this progress note, and it is not deemed complete until electronically signed by the appointment provider. Sign off status: Pending * Provider: Carmela Duff DPM Date: 0 07/07/2023 Generated for Ken rivas/Boy/Jayce on: 1 07:15 AM EDT
--- OUTSIDE RECORDS SUMMARY | 2024-12-29 07:16 | XMS_ITS | Clinical Summary ---
Author Organization [address] [facility] Address [address] [place] [address] Phone Care Team Providers Care Technology Officer Name Role Phone Marcy Sutton MD Primary Care Provider Social History Tobacco Use Types Packs/Day Years Used Date Smoking Tobacco: Never Assessed Comments Unknown Sex and Gender Information Value Date Recorded Sex Assigned at Not on file Legal Sex Female 8:33 AM EDT Gender Identity Not on file Sexual Orientation Not on file Plan of Treatment Upcoming Encounters Date Type Department Care Team (Late st Contact Info) Description 12/30/2024 8:30 AM EDT Consult Orthopedic Surgery [facility] [address] [facility] [address] [place] [id number] Corbin Coleman MD [address] [place], [place] [id number] 01/21/2025 9:00 AM EST Consult Orthopedic Surgery [facility] [address] [facility] [address] [place] [address] Yolis Chin MD [address] [place] [id number] Health Maintenance Due Date Last Done Comments Breast Cancer Screening 1959 Colorectal Cancer Screening: Colonoscopy 1959 DTaP,Tdap,and Td Vaccines (1 - Tdap) 1978 Cervical Cancer Screening: P ap Smear 01/24/1980 Pneumococcal Vaccine: 50+ Ye ars (1 of 1 - PCV) 2009 Zoster Vaccines (1 of 2) 2009 Depression Screening 03/17/2024 COVID-19 Vaccine (1 - 2023-2 5 season) 2024 Influenza Vaccine (#1) 2024 Falls Risk Assessment 12/27/2024 Hepatitis C Screening 12/27/2024 Medicare Annual Wellness Visit 12/27/2024 Osteoporosis Screening (Bone Density Screening) 12/27/2024 Social Influencers of Health Screening 12/27/2024 RSV Immunization Adult Patie nts (1 - 1-dose 75+ series) 2034 HIB Vaccines Aged Out No longer eligi ble based on patient's age to complete this topic HPV Vaccines Aged Out No longer eligi ble based on patient's age to complete this topic Hepatitis A Vaccines Aged Out No long er eligible based on patient's age to complete this topic Hepatitis B Vaccines Aged Out No long er eligible based on patient's age to complete this topic IPV Vaccines Aged Out No longer eligi ble based on patient's age to complete this topic MMR Vaccines Aged Out No longer eligi ble based on patient's age to complete this topic Meningococcal ACWY Vaccine Aged Out N o longer eligible based on patient's age to complete this topic Meningococcal B Vaccine Aged Out No l onger eligible based on patient's age to complete this topic RSV Immunization Patients Un conrad 20 months Aged Out No longer eligible b ased on patient's age to complete this topic Varicella Vaccines Aged Out No longer eligible based on patient's age to complete [place] [id number] Care Teams Technology Officer Relationship Specialty Start Date End Date Marcy Sutton MD [address] [place] [address] PCP - General Internal Medicine 12/27/24
--- OUTSIDE RECORDS SUMMARY | 2024-12-29 07:16 | XMS_ITS | Patient Health Record ---
Author Organization [facility] [place] Address [address] [place] [address] Care Team Providers Care General Office Clerk Name Role Phone Herman LARSON, Marcy Paige Primary Care Provider Un available Delaney Dwyer Unavailable [phone] Allergies Allergen (clinical drug ingredient) Drug/Non Drug [...] Insured Coverage Start Date Coverage End Date [facility] [address] [place] [address] [phone] [id number] Talisha Peralta Self - patient is the insured Medical (General) History Medical History History ICD Code Gall bladder problems Surgical History Surgery Date(Month/Year) Gall bladder removal 2004
[2024-12-29 10:55] LABS: Anion Gap 11 (12-20); Blood Urea Nitrogen 17 mg/dL (9-16); Calcium 9.7 mg/dL (8.4-10.2); Carbon Dioxide 28 mmol/L (22-29); Chloride 110 mmol/L (96-108); Cholesterol 206 mg/dL (<200); Estimated Glomerular Filt Rate > 60; HDL Cholesterol 49 mg/dL (>40); Magnesium 2.2 mg/dL (1.6-2.6); Potassium 4.6 mmol/L (3.3-5.1); Sodium 144 mmol/L (135-145); Triglycerides 179 mg/dL (<150)
== END 2024-12-29 07:14 | disposition home or self-care (01) ==
LOC: HO.HMGCLDS 07:13
PROVIDERS: PCP Internal Medicine; Visit Provider Internal Medicine
DX: Z00.01 Encounter for general adult medical examination with abnormal findings (principal); R73.01 Impaired fasting glucose; E66.9 Obesity, unspecified; E55.9 Vitamin D deficiency, unspecified; E78.5 Hyperlipidemia, unspecified; Z83.49 Family history of other endocrine, nutritional and metabolic diseases
CPT/HCPCS: 36415; 80048; 80061; 82306; 83036; 83735; 84443